=== PATIENT | male | born 1975 | race Caucasian/White ===

== ENCOUNTER → 2017-05-21 16:30 | Outpatient (REF) | payer OTHER, SELFPAY ==
[2017-05-21 19:00] LABS: Basophils # 0.2 K/mm3 (0-0.2); Basophils % 1.6 % (0.1-2.0); Eosinophils # 0.4 K/mm3 (0.0-0.4); Eosinophils % 3.8 % (0.1-12.0); Hematocrit 51.6 % (42.0-52.0); Lymphocytes # 3.1 K/mm3 (0.7-4.5); Lymphocytes % 30.9 K/mm3 (10-50); Mean Corpuscular Hemoglobin 29.4 pg (27.0-31.2); Mean Corpuscular Volume 89.2 fl (80-94); Mean Platelet Volume 8.3 fl (7.4-10.4); Monocytes # 0.8 K/mm3 (0.1-1.0); Neutrophils # 5.5 K/mm3 (1.8-7.8); Neutrophils % 55.7 % (37.0-80.0); Platelet Count 291 K/mm3 (142-424); Red Blood Count 5.78 M/mm3 (4.60-6.20); Red Cell Distribution Width 14.4 % (11.5-17.5); White Blood Count 9.9 K/mm3 (4.8-10.8)
[2017-05-21 19:46] LABS: Alanine Aminotransferase 29 U/L (12-78); Albumin Level 4.2 gm/dL (3.4-5.0); Albumin/Globulin Ratio 1.2 (1.1-1.8); Alkaline Phosphatase 104 U/L (46-116); Anion Gap 13.7 mEq/L (5-15); Aspartate Amino Transferase 17 U/L (15-37); Bilirubin,Total 0.3 mg/dL (0.2-1.0); Blood Urea Nitrogen 11 mg/dL (7-18); Calcium 9.3 mg/dL (8.5-10.1); Carbon Dioxide 27 mmol/L (21.0-32.0); Chloride 99 mmol/L (98-107); Creatinine,Serum 1.08 mg/dL (0.70-1.30); Estimated Glomerular Filt Rate 75 ml/min (>60); GFR (African American) 91 ML/MIN (>60); Globulin 3.6 gm/dl (1.3-3.2); Glucose 82 mg/dL (74-106); Potassium 4.7 mmoL/L (3.5-5.1); Sodium 135 mmol/L (136-145); Total Protein,Serum 7.8 gm/dL (6.4-8.2)
[2017-05-21 21:59] LABS: Hemoglobin A1C 5.3 % (0.0-7.0)
== END ==
LOC: LAB 16:30
PROVIDERS: Visit Provider Emergency Medicine
DX: R53.83 Other fatigue (principal)
CPT/HCPCS: 80053; 83036; 85025

== ENCOUNTER → 2017-07-02 11:51 | Outpatient (CLI) | payer OTHER, SELFPAY ==
--- NOTE | 2017-07-02 11:56 | NM_ITS ---
NM andrés perf SPECT rest str CLINICAL INDICATION: Chest pain and shortness of breath, hypertension hypercholesterolemia tobacco use positive family history ORDERING PHYSICIAN: Fabricio Neville MD PATIENT AGE: 42 years COMPARISON: 01/02/2017 DOSE: 11.20 mCi technetium Myoviewintravenously at rest followed by 31.1 mCi technetium Myoview following the intravenous administration of 0.4 mg of Lexiscan. Resting blood pressure is 140/84. Stress blood pressure 139/77. FINDINGS: Ejection fraction is calculated to be 62%. No obvious wall motion abnormalities. SPECT and polar map images reviewed. No fixed or reversible defects are evident that would indicate infarction or ischemia. Decrease activity is present in the inferior wall on the stress images probably related to diaphragmatic attenuation. IMPRESSION: 1. Normal ejection fraction. 2. No evidence of ischemia or infarction
--- NOTE | 2017-07-02 14:43 | HMH.ITSHM ---
lisinopril escitalopram gabapentin tramadol omeprazole
== END ==
PROVIDERS: Family Provider Emergency Medicine; PCP Emergency Medicine; Visit Provider Emergency Medicine
DX: R07.9 Chest pain, unspecified (principal)
CPT/HCPCS: 78452; 93017; A9502; J2785

== ENCOUNTER → 2017-07-24 08:47 | Outpatient (CLI) | payer OTHER, SELFPAY ==
--- NOTE | 2017-07-24 08:51 | US_ITS ---
US abdomen limited: HISTORY: ITS.REASON: RUQ pain ORDERING PHYSICIAN: Fabricio Neville MD PATIENT AGE: 42 years COMPARISON: None FINDINGS: PANCREAS: Unremarkable. No obvious mass or abnormal fluid collection. No ductal dilatation LIVER: No focal liver lesions demonstrated. Homogeneous echogenicity. No intrahepatic biliary ductal dilatation evident. Slight increased echogenicity of the liver suggesting fatty liver. Normal sized portal vein with appropriate direction blood flow RIGHT KIDNEY: Unremarkable. Normal size and echogenicity. No hydronephrosis GALLBLADDER: No gallstones, gallbladder wall thickening, pericholecystic fluid, or biliary dilatation. Gallbladder is slightly distended with a minimal amount sludge. IMPRESSION: Mildly distended gallbladder with small amount sludge. Fatty liver
== END ==
PROVIDERS: Family Provider Emergency Medicine; PCP Emergency Medicine; Visit Provider Emergency Medicine
DX: R10.11 Right upper quadrant pain (principal)
CPT/HCPCS: 76705

== ENCOUNTER → 2017-09-10 13:54 | Outpatient (REF) | payer OTHER, SELFPAY ==
[2017-09-10 19:27] LABS: Amphetamine/Metha Screen,Urine Negative ng/mL (<1000); Barbiturates Screen,Urine Negative ng/mL (<200); Benzodiazepines Screen,Urine Negative ng/mL (200); Cannabinoid Screen,Urine Positive ng/mL (<50); Cocaine Screen,Urine Negative ng/g (<300); Methadone Screen,Urine Negative ng/mL (<300); Opiate Screen,Urine Positive ng/mL (<300); Phencyclidine Screen,Urine Negative ng/mL (<25)
== END ==
LOC: LAB 13:54
PROVIDERS: Visit Provider Emergency Medicine
DX: Z79.899 Other long term (current) drug therapy (principal)
CPT/HCPCS: 80305

== ENCOUNTER → 2017-09-26 10:16 | Outpatient (CLI) | payer OTHER, SELFPAY ==
--- NOTE | 2017-09-26 10:17 | NM_ITS ---
HEPATOBILIARY SCAN WITH FATTY MEAL/ENSURE ORDERING PHYSICIAN : Fabricio Nevlile MD PATIENT AGE: 42 years GENDER: Male HISTORY: Right upper quadrant pain .. Nausea Following 8.4 millicuries Tc Choletec, images of the RUQ were obtained. There is prompt uptake of radionuclide by the liver which is grossly unremarkable. Small bowel is visualized. This initial portion of the study is normal. The gallbladder was allowed to fill out to 60 minutes. Fatty meal/1 can of ensure was administered, with imaging performed over 60 minutes minutes Thereafter. The obtain data was analyzed and reveals a 46 % gallbladder ejection fraction (normal greater than 50%; borderline 35-50%).. Borderline adequate value following fatty meal. Visual inspection to suggest there is near 50% ejection fraction as well. patient experienced no pain with fatty meal IMPRESSION: Borderline adequate ejection fraction of 46 % following fatty meal. No pain with fatty meal.
== END ==
PROVIDERS: Family Provider Emergency Medicine; PCP Emergency Medicine; Visit Provider Emergency Medicine
DX: K82.8 Other specified diseases of gallbladder (principal); R10.9 Unspecified abdominal pain
CPT/HCPCS: 78226; A9537

== ENCOUNTER → 2017-10-10 15:02 | Outpatient (CLI) | payer OTHER, SELFPAY ==
[2017-10-10 19:25] LABS: Amphetamine/Metha Screen,Urine Negative ng/mL (<1000); Barbiturates Screen,Urine Negative ng/mL (<200); Benzodiazepines Screen,Urine Negative ng/mL (200); Cannabinoid Screen,Urine Positive ng/mL (<50); Cocaine Screen,Urine Negative ng/g (<300); Methadone Screen,Urine Negative ng/mL (<300); Opiate Screen,Urine Positive ng/mL (<300); Phencyclidine Screen,Urine Negative ng/mL (<25)
== END ==
PROVIDERS: Visit Provider Emergency Medicine
DX: Z79.899 Other long term (current) drug therapy (principal)
CPT/HCPCS: 80305

== ENCOUNTER → 2017-10-23 10:51 | Outpatient (CLI) | payer OTHER, SELFPAY ==
--- NOTE | 2017-10-23 10:52 | FL_ITS ---
FL upper GI w air Ordering Physician: Pal Levi MD Patient Age: 42 years: Male HISTORY: ITS.REASON: ABDOMINAL PAIN, NAUSEA Left lower quadrant pain or reported to me. HISTORY states left-sided pain under ribs. Recent gallbladder studies were negative TECHNIQUE: Air-contrast UGI performed by Dr. Pineda. Fluoroscopy time 1 minute 47 seconds COMPARISON : FINDINGS Esophagus appears satisfactory and unremarkable under fluoroscopy observation. The stomach pylorus and duodenal bulb appear normal. Normal rugal fold pattern of stomach. Prompt gastric emptying. No ulceration or filling defect. Duodenal bulb appears normal. A 15 minute delayed image shows the oral contrast passing through the small bowel into the right colon. This reflects fairly rapid transit. Moderate thickness mucosal folds at small bowel IMPRESSION: Negative air-contrast UGI. Esophagus, stomach, pylorus and duodenal appears satisfactory.
== END ==
PROVIDERS: Family Provider Emergency Medicine; PCP Emergency Medicine; Visit Provider Surgery
DX: R10.9 Unspecified abdominal pain (principal)
CPT/HCPCS: 74247

== ENCOUNTER → 2017-10-27 09:03 | Outpatient (CLI) | payer OTHER, SELFPAY | PROVIDERS: Family Provider Emergency Medicine; PCP Emergency Medicine; Visit Provider Surgery | DX: R10.9 Unspecified abdominal pain (principal) ==

== ENCOUNTER → 2017-10-31 13:03 | Outpatient (CLI) | payer OTHER, SELFPAY ==
--- NOTE | 2017-10-31 13:07 | CT_ITS ---
CT abdomen pelvis w con CLINICAL INDICATION: Abdominal pain with nausea and vomiting ITS.REASON: gallbladder problems ORDERING PHYSICIAN: Pal Levi MD PATIENT AGE: 42 years COMPARISON: 03/06/2009 TECHNIQUE: Axial images obtained with sagittal and coronal reformats. All CT scans at the facility use one or more dose reduction, viz: automated exposure control; ma/kV adjustment per patient size (including targeted exams where dose is matched to indication; i.e. head); or iterative reconstruction technique. PROCEDURE: Oral Contrast: Redicat IV Contrast: 75 mL's of Isovue 370. FINDINGS: Lung bases are clear. The liver, gallbladder, spleen, and pancreas have an unremarkable appearance. There is minimal nodularity of the left adrenal gland but maintains an adreniform shape nonspecific. No renal calculi or ureteral calculi. No hydronephrosis or renal mass. Prior appendectomy. No intestinal obstruction or free air. No evidence of diverticulitis No pelvic mass abnormal fluid collection clinical pelvic inflammatory change. No acute bony anomalies. There is partial fusion of the right SI joint superiorly. IMPRESSION: No acute abdominal or pelvic findings. No intestinal obstruction, abdominal mass or focal inflammatory change.
--- NOTE | 2017-10-31 13:47 | HMH.ITSHM ---
LISINOPRIL ESCITALOPRAM PANTOPRAZOLE
== END ==
PROVIDERS: Family Provider Emergency Medicine; PCP Emergency Medicine; Visit Provider Surgery
DX: K82.9 Disease of gallbladder, unspecified (principal); R11.0 Nausea
CPT/HCPCS: 74177; Q9967

== ENCOUNTER → 2017-11-10 15:26 | Outpatient (REF) | payer OTHER, SELFPAY ==
[2017-11-10 18:53] LABS: Amphetamine/Metha Screen,Urine Negative ng/mL (<1000); Barbiturates Screen,Urine Negative ng/mL (<200); Benzodiazepines Screen,Urine Negative ng/mL (<200); Cannabinoid Screen,Urine Positive ng/mL (<50); Cocaine Screen,Urine Negative ng/mL (<300); Methadone Screen,Urine Negative ng/mL (<300); Opiate Screen,Urine Positive ng/mL (<300); Phencyclidine Screen,Urine Negative ng/mL (<25)
== END ==
LOC: LAB 15:26
PROVIDERS: Visit Provider Emergency Medicine
DX: Z79.899 Other long term (current) drug therapy (principal)
CPT/HCPCS: 80305

== ENCOUNTER → 2017-12-10 14:50 | Outpatient (REF) | payer OTHER, SELFPAY ==
[2017-12-10 18:24] LABS: Amphetamine/Metha Screen,Urine Negative ng/mL (<1000); Barbiturates Screen,Urine Negative ng/mL (<200); Benzodiazepines Screen,Urine Negative ng/mL (<200); Cannabinoid Screen,Urine Positive ng/mL (<50); Cocaine Screen,Urine Negative ng/mL (<300); Methadone Screen,Urine Negative ng/mL (<300); Opiate Screen,Urine Positive ng/mL (<300); Phencyclidine Screen,Urine Negative ng/mL (<25)
== END ==
LOC: LAB 14:50
PROVIDERS: Visit Provider Emergency Medicine
DX: Z79.899 Other long term (current) drug therapy (principal)
CPT/HCPCS: 80305

== ENCOUNTER → 2018-01-09 16:12 | Outpatient (REF) | payer OTHER, SELFPAY ==
[2018-01-09 17:40] LABS: Basophils # 0.1 K/mm3 (0-0.2); Basophils % 1.2 % (0.1-2.0); Eosinophils # 0.4 K/mm3 (0.0-0.4); Eosinophils % 4.5 % (0.1-12.0); Hematocrit 49.2 % (42.0-52.0); Hemoglobin 16.5 g/dL (14.1-18.0); Lymphocytes # 3.4 K/mm3 (0.7-4.5); Lymphocytes % 36.5 K/mm3 (10-50); Mean Corpuscular HGB Conc 33.4 g/dL (31.8-35.4); Mean Corpuscular Hemoglobin 32.4 pg (27.0-31.2); Mean Corpuscular Volume 96.9 fl (80-94); Mean Platelet Volume 7.7 fl (7.4-10.4); Monocytes # 0.8 K/mm3 (0.1-1.0); Monocytes % 8.1 % (1.7-9.3); Neutrophils # 4.7 K/mm3 (1.8-7.8); Neutrophils % 49.6 % (37.0-80.0); Platelet Count 273 K/mm3 (142-424); Red Blood Count 5.08 M/mm3 (4.60-6.20); Red Cell Distribution Width 14.6 % (11.5-17.5); White Blood Count 9.4 K/mm3 (4.8-10.8)
[2018-01-09 18:17] LABS: Alanine Aminotransferase 18 U/L (12-78); Albumin Level 4.3 gm/dL (3.4-5.0); Albumin/Globulin Ratio 1.1 (1.1-1.8); Alkaline Phosphatase 104 U/L (46-116); Anion Gap 11.5 mEq/L (5-15); Aspartate Amino Transferase 10 U/L (15-37); Bilirubin,Total 0.5 mg/dL (0.2-1.0); Blood Urea Nitrogen 9 mg/dL (7-18); C-Reactive Protein 0.2 mg/L (0.0-0.9); Calcium 9.3 mg/dL (8.5-10.1); Carbon Dioxide 28 mmol/L (21.0-32.0); Chloride 102 mmol/L (98-107); Chol/HDL Ratio 4.7 (1-3.5); Cholesterol 187 mg/dL (140-200); Creatinine,Serum 1.01 mg/dL (0.70-1.30); Estimated Glomerular Filt Rate 81 ml/min (>60); GFR (African American) 98 ML/MIN (>60); Globulin 3.8 gm/dl (1.3-3.2); Glucose 72 mg/dL (74-106); HDL Cholesterol 40 mg/dL (27-67); LDL Cholesterol 97 mg/dL (0-130); Potassium 4.5 mmoL/L (3.5-5.1); Sodium 137 mmol/L (136-145); Total Protein,Serum 8.1 gm/dL (6.4-8.2); Triglycerides 249 mg/dL (30-200); VLDL Cholesterol 50 mg/dL (0-40)
[2018-01-09 18:30] LABS: Erythrocyte Sedimentation Rate 8 mm/hr (0-15)
== END ==
LOC: LAB 16:12
PROVIDERS: Visit Provider Emergency Medicine
DX: R53.83 Other fatigue (principal); M54.9 Dorsalgia, unspecified
CPT/HCPCS: 80053; 80061; 85025; 85651; 86140

== ENCOUNTER → 2018-01-20 13:49 | Outpatient (REF) | payer OTHER, SELFPAY ==
[2018-01-20 19:10] LABS: Amphetamine/Metha Screen,Urine Negative ng/mL (<1000); Barbiturates Screen,Urine Negative ng/mL (<200); Benzodiazepines Screen,Urine Negative ng/mL (<200); Cannabinoid Screen,Urine Positive ng/mL (<50); Cocaine Screen,Urine Negative ng/mL (<300); Methadone Screen,Urine Negative ng/mL (<300); Opiate Screen,Urine Positive ng/mL (<300); Phencyclidine Screen,Urine Negative ng/mL (<25)
== END ==
LOC: LAB 13:49
PROVIDERS: PCP Emergency Medicine; Visit Provider Emergency Medicine
DX: Z79.899 Other long term (current) drug therapy (principal)
CPT/HCPCS: 80305

== ENCOUNTER → 2018-12-02 13:17 | Outpatient (CLI) | payer OTHER, SELFPAY ==
[2018-12-02 13:37] LABS: Basophils # 0.1 K/mm3 (0-0.2); Basophils % 1.1 % (0.1-2.0); Eosinophils # 0.4 K/mm3 (0.0-0.4); Eosinophils % 4.9 % (0.1-12.0); Hematocrit 51.3 % (42.0-52.0); Hemoglobin 17.1 g/dL (14.1-18.0); Lymphocytes # 2.7 K/mm3 (0.7-4.5); Lymphocytes % 31.7 % (10-50); Mean Corpuscular HGB Conc 33.4 g/dL (31.8-35.4); Mean Corpuscular Hemoglobin 31.7 pg (27.0-31.2); Mean Corpuscular Volume 94.9 fl (80-94); Mean Platelet Volume 7.6 fl (7.4-10.4); Monocytes # 0.6 K/mm3 (0.1-1.0); Monocytes % 6.9 % (1.7-9.3); Neutrophils # 4.8 K/mm3 (1.8-7.8); Neutrophils % 55.5 % (37.0-80.0); Platelet Count 286 K/mm3 (142-424); Red Blood Count 5.41 M/mm3 (4.60-6.20); Red Cell Distribution Width 14.3 % (11.5-17.5); White Blood Count 8.6 K/mm3 (4.8-10.8)
[2018-12-02 13:44] LABS: Alanine Aminotransferase 20 U/L (12-78); Albumin Level 4.2 gm/dL (3.4-5.0); Albumin/Globulin Ratio 1.1 (1.1-1.8); Alkaline Phosphatase 84 U/L (46-116); Anion Gap 12.5 mEq/L (5-15); Aspartate Amino Transferase 6 U/L (15-37); Bilirubin,Total 0.4 mg/dL (0.2-1.0); Blood Urea Nitrogen 13 mg/dL (7-18); Calcium 9.5 mg/dL (8.5-10.1); Carbon Dioxide 27 mmol/L (21.0-32.0); Chloride 103 mmol/L (98-107); Chol/HDL Ratio 4.4 (1-3.5); Cholesterol 185 mg/dL (140-200); Creatinine,Serum 0.95 mg/dL (0.70-1.30); Estimated Glomerular Filt Rate 87 ml/min (>60); Free T4 (Free Thyroxine) 0.83 ng/dl (0.76-1.46); GFR (African American) 105 ML/MIN (>60); Globulin 3.9 gm/dl (1.3-3.2); Glucose 82 mg/dL (74-106); HDL Cholesterol 42 mg/dL (27-67); LDL Cholesterol 112 mg/dL (0-130); Potassium 4.5 mmoL/L (3.5-5.1); Sodium 138 mmol/L (136-145); Thyroid Stimulating Hormone 1.26 uIU/ml (0.358-3.740); Total Protein,Serum 8.1 gm/dL (6.4-8.2); Triglycerides 154 mg/dL (30-200); VLDL Cholesterol 31 mg/dL (0-40)
[2018-12-03 13:20] LABS: Vitamin D 25 Hydroxy 24.9 ng/mL (30.0-100.0)
== END ==
PROVIDERS: Visit Provider Emergency Medicine
DX: R53.83 Other fatigue (principal)
CPT/HCPCS: 80053; 80061; 82652; 84439; 84443; 85025

== ENCOUNTER → 2019-01-12 13:52 | Outpatient (CLI) | payer OTHER, SELFPAY ==
[2019-01-12 15:18] LABS: Amphetamine/Metha Screen,Urine Negative ng/mL (<1000); Barbiturates Screen,Urine Negative ng/mL (<200); Benzodiazepines Screen,Urine Negative ng/mL (<200); Cannabinoid Screen,Urine Positive ng/mL (<50); Cocaine Screen,Urine Negative ng/mL (<300); Methadone Screen,Urine Negative ng/mL (<300); Opiate Screen,Urine Negative ng/mL (<300); Phencyclidine Screen,Urine Negative ng/mL (<25)
[2019-01-20 10:14] LABS: Alprazolam Negative (Cutoff=100); Benzodiazepines Positive ng/mL (Cutoff=100); Clonazepam Positive (.); Flurazepam Negative (Cutoff=100); Lorazepam Negative (Cutoff=100); Midazolam Negative (Cutoff=100); Temazepam Negative (Cutoff=100); Triazolam Negative (Cutoff=100)
[2019-01-21 06:10] LABS: Clonazepam Confirm 103 ng/mL (Cutoff=100)
== END ==
PROVIDERS: Visit Provider Emergency Medicine
DX: F41.9 Anxiety disorder, unspecified (principal); Z79.899 Other long term (current) drug therapy
CPT/HCPCS: 80305; 80346

== ENCOUNTER → 2019-05-28 13:42 | Outpatient (CLI) | payer MEDICAID, SELFPAY ==
[2019-05-28 15:44] LABS: Amphetamine/Metha Screen,Urine Negative ng/mL (<1000); Barbiturates Screen,Urine Negative ng/mL (<200); Benzodiazepines Screen,Urine Negative ng/mL (<200); Cannabinoid Screen,Urine Positive ng/mL (<50); Cocaine Screen,Urine Negative ng/mL (<300); Methadone Screen,Urine Negative ng/mL (<300); Opiate Screen,Urine Negative ng/mL (<300); Phencyclidine Screen,Urine Negative ng/mL (<25)
[2019-06-04 04:23] LABS: Alprazolam Negative (Cutoff=100); Benzodiazepines Negative ng/mL (Cutoff=100); Clonazepam Negative (Cutoff=100); Flurazepam Negative (Cutoff=100); Lorazepam Negative (Cutoff=100); Midazolam Negative (Cutoff=100); Temazepam Negative (Cutoff=100); Triazolam Negative (Cutoff=100)
== END ==
PROVIDERS: Visit Provider Emergency Medicine
DX: Z79.899 Other long term (current) drug therapy (principal)
CPT/HCPCS: 80305; 80346

== ENCOUNTER → 2019-10-05 11:24 | Outpatient (CLI) | payer MEDICAID, SELFPAY ==
[2019-10-05 12:14] LABS: Basophils # 0.1 K/mm3 (0-0.2); Basophils % 1.4 % (0.1-2.0); Eosinophils # 0.8 K/mm3 (0.0-0.4); Eosinophils % 9.4 % (0.1-12.0); Hematocrit 44.8 % (42.0-52.0); Lymphocytes # 2.9 K/mm3 (0.7-4.5); Lymphocytes % 32.7 % (10-50); Mean Corpuscular HGB Conc 33.5 g/dL (31.8-35.4); Mean Corpuscular Hemoglobin 32.5 pg (27.0-31.2); Mean Platelet Volume 7.6 fl (7.4-10.4); Monocytes # 0.7 K/mm3 (0.1-1.0); Monocytes % 7.4 % (1.7-9.3); Neutrophils # 4.4 K/mm3 (1.8-7.8); Neutrophils % 49.1 % (37.0-80.0); Platelet Count 208 K/mm3 (142-424); Red Blood Count 4.62 M/mm3 (4.60-6.20); Red Cell Distribution Width 14.3 % (11.5-17.5); White Blood Count 8.9 K/mm3 (4.8-10.8)
[2019-10-05 13:47] LABS: Alanine Aminotransferase 12 U/L (12-78); Albumin Level 4.9 g/dl (3.5-5.0); Albumin/Globulin Ratio 1.8 (1.1-1.8); Alkaline Phosphatase 60 U/L (38-126); Anion Gap 10.5 mEq/L (5-15); Aspartate Amino Transferase 21 U/L (17-59); Bilirubin,Total 0.5 mg/dl (0.2-1.3); Blood Urea Nitrogen 13 mg/dl (9-20); Calcium 9.8 mg/dl (8.4-10.2); Carbon Dioxide 29 mmol/L (22.0-30.0); Chloride 102 mmol/L (98-107); Estimated Glomerular Filt Rate 73 ml/min (>60); GFR (African American) 88 ML/MIN (>60); Globulin 2.8 g/dL (1.3-3.2); Glucose 69 mg/dl (74-100); Potassium 4.5 mmoL/L (3.5-5.1); Sodium 137 mmol/L (136-145); Total Protein,Serum 7.7 g/dl (6.3-8.2)
[2019-10-05 14:19] LABS: Thyroid Stimulating Hormone 1.65 uIU/mL (0.465-4.68)
[2019-10-05 14:26] LABS: Hemoglobin A1C 5.1 % (4.0-6.0)
[2019-10-06 14:16] LABS: Vitamin B12 246 pg/mL (232-1245); Vitamin D 25 Hydroxy 20.9 ng/mL (30.0-100.0)
== END ==
PROVIDERS: Visit Provider Nurse Practitioner Psychiatric/Mental Health
DX: Z00.00 Encounter for general adult medical examination without abnormal findings (principal); Z79.899 Other long term (current) drug therapy; F20.1 Disorganized schizophrenia; F41.1 Generalized anxiety disorder; G47.00 Insomnia, unspecified; E55.9 Vitamin D deficiency, unspecified
CPT/HCPCS: 36415; 80053; 82607; 82652; 83036; 84443; 85025

== ENCOUNTER → 2019-11-09 14:01 | Outpatient (CLI) | payer MEDICAID, SELFPAY ==
--- NOTE | 2019-11-09 14:04 | XR_ITS ---
PROCEDURE: XR FOOT WT BEARING RT 3V CLINICAL INDICATION: pain Foot pain COMPARISON: No exams were available for comparison FINDINGS: No fracture or dislocation. No lytic or blastic change. There is normal mineralization. The joint spaces are well-preserved. No significant degenerative/arthritic changes. No erosive changes evident. Other findings:None. IMPRESSION: No acute findings. Dictated by: Robbi Terry MD 11/09/2019 15:28 Electronically signed by Robbi Terry MD in [facility] 11/09/2019 15:28
--- NOTE | 2019-11-09 14:04 | XR_ITS ---
PROCEDURE: XR FOOT WT BEARING LT 3V CLINICAL INDICATION: pain COMPARISON: No exams were available for comparison FINDINGS: No fracture or dislocation. No lytic or blastic change. There is normal mineralization. The joint spaces are well-preserved. No significant degenerative/arthritic changes. No erosive changes evident. Other findings:None. IMPRESSION: No acute findings. Dictated by: Robbi Terry MD 11/09/2019 15:04 Electronically signed by Robbi Terry MD in [facility] 11/09/2019 15:04
== END ==
PROVIDERS: PCP Emergency Medicine; Visit Provider Podiatrist
DX: M79.672 Pain in left foot (principal); M79.671 Pain in right foot
CPT/HCPCS: 73630

== ENCOUNTER 2020-06-23 11:00 | Emergency (ER) | payer MEDICAID, SELFPAY ==
[2020-06-23] VITALS (9 sets, daily range): BP systolic 128–178; BP diastolic 82–103; PULSE 91–98; RESP 13–22; TEMP 36.7; O2SAT 99–100; BMI 33.6
--- NOTE | 2020-06-23 10:50 | ECG_ITS ---
APPROVED REPORT Exam: Resting ECG HR:98 bpm ECG Measurements Heart Rate 98 AXES FL 156 P 69 QRSd 90 QRS 90 QT 352 T 77 QTc 449 Conclusion Normal sinus rhythm Rightward axis Borderline ECG Electronically signed by : Paul Babcock, 06/23/2020 20:10:16
--- NOTE | 2020-06-23 11:07 | XR_ITS ---
PROCEDURE: XR CHEST 2V CLINICAL HISTORY: chest pain Smoking history COMPARISON: CR CXR CHEST(2 VIEWS-NOT PORTABLE) from 08/12/2013 CR CXR CHEST(2 VIEWS-NOT PORTABLE) from 01/01/2017 FINDINGS: The cardiomediastinal silhouette and pulmonary vascularity are within normal limits. The lungs are clear without infiltrates, suspicious nodules, or pleural effusions. There is a calcified right hilar node No acute bony abnormalities. IMPRESSION: No acute findings. Dictated by: Dr. Ralph Underwood MD 06/23/2020 12:16 Dr. Ralph Underwood MD in [facility] 06/23/2020 12:16
--- NOTE | 2020-06-23 11:14 | HMH.EDGENADL ---
ED Disposition Clinical Impression: Atypical chest pain, Left sided abdominal pain, Weight gain, Anxiety Disposition: Home, Self-Care Condition on Discharge: Good Instructions: DI for Atypical Chest Pain, DI for Abdominal Pain-Adult Additional Instructions: Go to see Dr. Neville now. Additional instructions for CHEST PAIN: See your physician as soon as possible for further evaluation. Return immediately if worsening chest pain, vomiting, shortness of breath, fever, coughing of blood. Additional instructions for ABDOMINAL PAIN: See your physician as soon as possible for further evaluation. Return immediately if worsening abdominal pain, vomiting, shortness of breath, fever, vomiting of blood or abdominal distention. Referrals: Fabricio Neville MD [Primary Care Provider] - - Critical Care Critical Care Time: No Attestation: On 06/23/20, the high probability of a clinically significant, sudden or life threatening deterioration of the following system(s) required my full and direct attention, intervention and personal management. The time I documented below is in addition to time spent performing reported procedures but includes the following listed in this critical care notation. Medical Decision Making - Aneudy Inquiry Pt receiving controlled substance: No Vital Signs: 06/23/20 11:00 06/23/20 11:30 06/23/20 12:00 Temperature 98.0 F Temperature Source Oral Pulse Rate [Left Radial] 98 H 93 H 92 H Respiratory Rate 20 22 22 Blood Pressure [Right Arm] 161/100 H 166/98 H 144/91 H Blood Pressure Mean [Right Arm] 120 120 108 Blood Pressure Source [Right Arm] Automatic Cuff Automatic Cuff Automatic Cuff Blood Pressure Position [Right Arm] Sitting Sitting Sitting 02 Sat by Pulse Oximetry 99 99 99 Oxygen Delivery Method Room Air Room Air Room Air 06/23/20 12:30 06/23/20 13:00 06/23/20 13:30 Temperature Temperature Source Pulse Rate [Left Radial] 95 H 96 H 93 H Respiratory Rate 21 18 18 Blood Pressure [Right Arm] 153/90 H 145/93 H 152/82 H Blood Pressure Mean [Right Arm] 111 110 105 Blood Pressure Source [Right Arm] Automatic Cuff Automatic Cuff Automatic Cuff Blood Pressure Position [Right Arm] Sitting Sitting Sitting 02 Sat by Pulse Oximetry 99 100 100 Oxygen Delivery Method Room Air Room Air Room Air 06/23/20 14:00 Temperature Temperature Source Pulse Rate [Left Radial] 91 H Respiratory Rate 13 Blood Pressure [Right Arm] 178/98 H Blood Pressure Mean [Right Arm] 124 Blood Pressure Source [Right Arm] Automatic Cuff Blood Pressure Position [Right Arm] Sitting 02 Sat by Pulse Oximetry 100 Oxygen Delivery Method Room Air - Lab Data Lab Results 06/23/20 11:00: WBC 9.0, RBC 4.85, Hgb 15.3, Hct 46.6, MCV 96.1 H, MCH 31.6 H, MCHC 32.9, RDW 15.5, Plt Count 248, MPV 7.1 L, Neut % (Auto) 56.6, Lymph % (Auto) 30.6, [place] % (Auto) 7.6, Eos % (Auto) 3.9, Baso % (Auto) 1.4, Neut # (Auto) 5.1, Lymph # (Auto) 2.7, [place] # (Auto) 0.7, Eos # (Auto) 0.4, Baso # (Auto) 0.1 06/23/20 11:00: Sodium 139, Potassium 4.2, Chloride 103, Carbon Dioxide 28, Anion Gap 12.2, BUN 13, Creatinine 1.20, Estimated Creat Clear 107, Estimated GFR 65, Est GFR ( Amer) 79, Glucose 96, Calcium 9.9, Troponin I < 0.01 06/23/20 11:00: Total Bilirubin 0.6, Direct Bilirubin 0.2, Conjugated Bilirubin 0.0, Indirect Bilirubin 0.4, Unconjugated Bilirubin 0.4, AST 23, ALT 19, Alkaline Phosphatase 57, Total Protein 8.3 H, Albumin 4.7, Lipase 30 06/23/20 13:55: Troponin I < 0.01 06/23/20 13:58: Urine Opiates Screen Negative, Urine Methadone Screen Negative, Ur Barbituates Screen Negative, Ur Phencyclidine Scrn Negative, Ur Amphetamines Screen Negative, U Benzodiazepines Scrn Negative, Urine Cocaine Screen Negative, U Marijuana (THC) Screen Positive H Result diagrams: 06/23/20 11:00 06/23/20 11:00 Orders (Tests/Meds): ED MEDICATIONS Discontinued Medications Generic Name Dose Route Start Last Admin Trade Name Franklyn PRN
--- NOTE | 2020-06-23 11:17 | PC.NURSE ---
Pt taken to restroom at this time. Urine specimen requested.
[2020-06-23 11:18] LABS: Basophils # 0.1 K/mm3 (0-0.2); Basophils % 1.4 % (0.1-2.0); Eosinophils # 0.4 K/mm3 (0.0-0.4); Eosinophils % 3.9 % (0.1-12.0); Hematocrit 46.6 % (42.0-52.0); Hemoglobin 15.3 g/dL (14.1-18.0); Lymphocytes # 2.7 K/mm3 (0.7-4.5); Lymphocytes % 30.6 % (10-50); Mean Corpuscular HGB Conc 32.9 g/dL (31.8-35.4); Mean Corpuscular Hemoglobin 31.6 pg (27.0-31.2); Mean Corpuscular Volume 96.1 fl (80-94); Mean Platelet Volume 7.1 fl (7.4-10.4); Monocytes # 0.7 K/mm3 (0.1-1.0); Monocytes % 7.6 % (1.7-9.3); Neutrophils # 5.1 K/mm3 (1.8-7.8); Neutrophils % 56.6 % (37.0-80.0); Platelet Count 248 K/mm3 (142-424); Red Blood Count 4.85 M/mm3 (4.60-6.20); Red Cell Distribution Width 15.5 % (11.5-17.5)
[2020-06-23 11:19] LABS: Chloride 103 mmol/L (98-107); Potassium 4.2 mmoL/L (3.5-5.1); Sodium 139 mmol/L (136-145)
--- NOTE | 2020-06-23 11:19 | PC.NURSE ---
pt back to room.
[2020-06-23 11:22] LABS: Blood Urea Nitrogen 13 mg/dl (9-20); Creatinine Clearance Estimated 107 mL/min (50-200); Estimated Glomerular Filt Rate 65 ml/min (>60); GFR (African American) 79 ML/MIN (>60)
[2020-06-23 11:23] LABS: Anion Gap 12.2 mEq/L (5-15); Calcium 9.9 mg/dl (8.4-10.2); Carbon Dioxide 28 mmol/L (22.0-30.0); Glucose 96 mg/dl (74-100)
--- NOTE | 2020-06-23 11:27 | CT_ITS ---
PROCEDURE: CT ABDOMEN PELVIS W CON CLINICAL INDICATION: abdominal pain and swelling COMPARISON: CT ABDPELW CT abdomen pelvis w con from 10/31/[address] ANGIO CHEST from 06/23/2020 TECHNIQUE: IV Contrast: 75ML Isovue 370 Oral Contrast None Axial images obtained with sagittal and coronal reformats. All CT scans at the facility use one or more dose reduction, viz: automated exposure control, ma/kV adjustment per patient size (including targeted exams where dose is matched to indication, i.e. head), or iterative reconstruction technique. FINDINGS: LOWER THORAX: Refer to chest CT dictation. ABDOMEN & PELVIS: There is no intraperitoneal free air or free fluid. Incidentally noted is focal fatty sparing adjacent to the gallbladder fossa and peripheral margin of the liver. The solid abdominal organs have an otherwise normal appearance. There is a mildly distended, otherwise normal appearing urinary bladder. Pelvic organs have a normal appearance. The GI tract is incompletely evaluated in the absence of intraluminal contrast. There is no ileus or obstruction. There is mucosal enhancement in the distal esophagus suggesting esophagitis. There are no pathologically enlarged abdominal or pelvic lymph nodes by CT size criteria. There are scattered periaortic lymph nodes and tiny retrocrural lymph nodes nonenlarged but greater than typical. A 1 year follow-up abdomen CT would be reassuring. There is minimal scattered atherosclerotic calcification in the vasculature. The major abdominal and pelvic vasculature is otherwise unremarkable. IMPRESSION: 1. Suspected esophagitis. Correlate clinically. Malignancy can have a similar appearance. 2. Scattered nonenlarged lymph nodes. One year follow-up abdomen CT would be reassuring. Dictated by: Marisel Cazares MD 06/23/2020 13:10 Marisel Cazares MD in [facility] 06/23/2020 13:10
--- NOTE | 2020-06-23 11:28 | CT_ITS ---
PROCEDURE: CT ANGIO CHEST CLINCIAL INDICATION: pleuritic chest pain COMPARISON: CR CXR CHEST(2 VIEWS-NOT PORTABLE) from 08/12/2013 CR CXR CHEST(2 VIEWS-NOT PORTABLE) from 01/01/2017 TECHNIQUE: IV Contrast: 70ML Isovue 370 Axial images obtained with sagittal and coronal reformats. All CT scans at the facility use one or more dose reduction, viz: automated exposure control, ma/kV adjustment per patient size (including targeted exams where dose is matched to indication, i.e. head), or iterative reconstruction technique. FINDINGS: There is no infiltrate. There are two 3 millimeter right lung nodules, images 30 and 39. A 1 year follow-up chest CT could be performed. There is excellent opacification of the pulmonary arteries. There is no pulmonary embolus. The thoracic aorta is normal in size and appearance. There is diffuse thickening of the esophagus. This most frequently represents esophagitis, however malignancy has a similar appearance. Thyroid gland is normal. There is a 1.3 by 0.9 centimeter right paratracheal lymph node there is a 1.5 by 0.8 centimeter lymph node adjacent to the mid esophagus. These lymph nodes are upper limits of normal in size. There are no pleural effusions. Minimal pericardial fluid within normal limits. There is reflux of injected contrast into the hepatic veins. This is a nonspecific finding but can be associated with right heart failure, correlate clinically. Refer to abdomen pelvis dictation for abdominal and pelvic findings. IMPRESSION: 1. Negative for pulmonary embolus or infiltrate. 2. Suspicious for esophagitis. Malignancy can have a similar appearance. 3. Two borderline enlarged lymph nodes of uncertain clinical significance. 4. Reflex of contrast into the hepatic veins, see comments above. 5. Two tiny right lung nodules. A 1 year follow-up chest CT could be performed. Dictated by: Marisel Cazares MD 06/23/2020 12:55 Marisel Cazares MD in [facility] 06/23/2020 12:55
[2020-06-23 11:40] LABS: Alanine Aminotransferase 19 U/L (12-78); Aspartate Amino Transferase 23 U/L (17-59); Bilirubin,Unconjugated 0.4 mg/dL (0.0-1.1)
[2020-06-23 11:41] LABS: Albumin Level 4.7 g/dl (3.5-5.0); Alkaline Phosphatase 57 U/L (38-126); Bilirubin,Direct 0.2 mg/dl (0.0-0.4); Bilirubin,Indirect 0.4 mg/dL (0.0-0.9); Bilirubin,Total 0.6 mg/dl (0.2-1.3); Lipase 30 U/L (23-300); Total Protein,Serum 8.3 g/dl (6.3-8.2)
[2020-06-23 11:57] LABS: Troponin I < 0.01 ng/ml (0.00-0.034)
--- NOTE | 2020-06-23 12:03 | PC.NURSE ---
Addendum entered by Elle Montoya, EMT-P 06/23/20 12:04: pt going to rad. Original Note: rad at bedside
--- NOTE | 2020-06-23 13:15 | PC.NURSE ---
Called for Jamin to speak with Patsy
--- NOTE | 2020-06-23 13:49 | PC.NURSE ---
speaking with Jamin at this time.
--- NOTE | 2020-06-23 13:53 | CA_ITS ---
APPROVED REPORT EXAM: Comprehensive 2D, Doppler, and color-flow Echocardiogram Optimization Analyst: Taylor Gamez, RT(R) Ht: 5 ft 7 in Wt: 251lbs BSA: 2.23 BP: 144/91 mmHg Indications: CP, heavy tobacco user, HTN, hyperlipidemia, pain lt arm, GERD, marijuana usage, 2D Dimensions LVOT 2.23 cm (M/F) 1.5-2.5 M-Mode Dimensions RVDd 2.80 cm (0.9-2.6) LA Diam 3.54 cm (1.9-4.0) LVDd 3.69 cm (3.5-5.7) Ao Diam 2.68 cm (2.0-3.7) LVDs 2.84 cm (3.5-5.7) IVSd 1.23 cm (0.6-1.1) PWd 1.23 cm (0.6-1.1) EF (Teich) 47.10% FS 23.00% EDV (Teich) 57.80 mL ESV (Teich) 30.60 mL LV Diastology E Decel Time 163.00 (160-240 msec) E/A Ratio 1.3 MED E' 10.50 (< 7 cm/sec) E'/MED E' Ratio 9.37 (>14) LAT E' 8.90 (<10 cm/sec) E/LAT E' Ratio 11.06 (>14) Mitral Valve MV E Max Jesus. 98.00 (40-130 cm/s) MV A Velocity 73.00 (40-130 cm/s) E/A Ratio 1.34 MV Decel. Time 163.00 (160-240 ms) MV PHT 48.00 ms Left Ventricle Left atrium is normal size, left ventricle is normal size, there is no concentric left ventricular hypertrophy, visually estimated ejection fraction 55% with no regional wall motion abnormality, diastolic parameters are within normal range. Right Ventricle Right atrium is normal size, right ventricle is mildly enlarged with normal contractility. Aortic Valve Aortic valve is minimally thickened and fibrosed, there is no aortic stenosis or aortic insufficiency. Mitral Valve Mitral valve grossly normal, there is trace mitral regurgitation. Tricuspid Valve Tricuspid valve is grossly normal, there is trace tricuspid regurgitation. Pulmonic Valve Pulmonic valve is poorly visualized. Great Vessels Aortic root is normal size. Pericardium No significant pericardial effusion noted. Conclusion 1. Normal left ventricular size, preserved left ventricular systolic function, visually estimated ejection fraction 55% with no regional wall motion abnormality, diastolic parameters are within normal range. 2. Minimally thickened and fibrosed aortic valve without aortic stenosis or aortic insufficiency. 3. Trace mitral and tricuspid regurgitation. 4. Mildly enlarged right ventricle with normal contractility. 5. No significant pericardial effusion noted. Electronically signed by : Tommy Mayer, 06/23/2020 18:04:09
[2020-06-23 14:03] LABS: Microscopic, Urine URINE MICROSCOPIC (MICROSCOPIC)
[2020-06-23 14:07] LABS: Appearance,Urine CLEAR (Clear); Bilirubin,Urine Negative (Negative); Blood, Urine Negative (Negative); Color,Urine YELLOW (Yellow); Glucose,Urine (UA) Negative (Negative); Ketones,Urine Negative (Negative); Leukocyte Esterase,Urine Negative (Negative); Nitrate,Urine Negative (Negative); Protein,Urine Negative (Negative); Specific Gravity, Urine <= 1.005 (1.005-1.030); Urobilinogen,Urine 0.2 EU/dl (0.2)
[2020-06-23 14:15] LABS: Amphetamine/Metha Screen,Urine Negative ng/ml (<1000)
[2020-06-23 14:16] LABS: Barbiturates Screen,Urine Negative ng/ml (<200)
[2020-06-23 14:17] LABS: Benzodiazepines Screen,Urine Negative ng/ml (<200); Cannabinoid Screen,Urine Positive ng/ml (<50)
[2020-06-23 14:18] LABS: Cocaine Screen,Urine Negative ng/ml (<300)
[2020-06-23 14:19] LABS: Methadone Screen,Urine Negative ng/ml (<300); Opiate Screen,Urine Negative ng/ml (<300)
[2020-06-23 14:20] LABS: Phencyclidine Screen,Urine Negative ng/ml (<25)
--- NOTE | 2020-06-23 14:25 | PC.NURSE ---
cv lab staff at
[2020-06-23 14:32] LABS: Troponin I < 0.01 ng/ml (0.00-0.034)
[2020-06-23 15:35] LABS: Bacteria,Urine Trace /lpf; RBC,Urine Occasional #/hpf (0-3); Squamous Epithelial Cell,Urine Occasional #/hpf (0-5)
== END 2020-06-23 15:33 | disposition home or self-care (01) ==
PROVIDERS: Emergency Provider Emergency Medicine; PCP Emergency Medicine
DX: R07.89 Other chest pain (principal); R10.32 Left lower quadrant pain; F41.8 Other specified anxiety disorders; F12.10 Cannabis abuse, uncomplicated; K21.9 Gastro-esophageal reflux disease without esophagitis; I10 Essential (primary) hypertension; Z88.0 Allergy status to penicillin; Z79.899 Other long term (current) drug therapy
CPT/HCPCS: 71046; 71275; 74177; 80048; 80076; 80305; 81001; 83690; 84484; 85025; 93005; 93306; 99284; Q9967

== ENCOUNTER → 2020-06-23 15:57 | Outpatient (CLI) | payer MEDICAID, SELFPAY ==
[2020-06-23 16:00] LABS: Opiate Screen,Urine Negative ng/ml (<300)
[2020-06-23 16:01] LABS: Amphetamine/Metha Screen,Urine Negative ng/ml (<1000); Barbiturates Screen,Urine Negative ng/ml (<200); Benzodiazepines Screen,Urine Negative ng/ml (<200); Cannabinoid Screen,Urine Positive ng/ml (<50); Cocaine Screen,Urine Negative ng/ml (<300); Methadone Screen,Urine Negative ng/ml (<300); Phencyclidine Screen,Urine Negative ng/ml (<25)
== END ==
PROVIDERS: Visit Provider Emergency Medicine
DX: Z79.899 Other long term (current) drug therapy (principal)
CPT/HCPCS: 80305

== ENCOUNTER → 2020-11-08 16:17 | Outpatient (CLI) | payer MEDICAID, SELFPAY ==
[2020-11-08 16:34] LABS: Basophils # 0.1 K/mm3 (0-0.2); Basophils % 1.2 % (0.1-2.0); Eosinophils # 0.6 K/mm3 (0.0-0.4); Eosinophils % 5.2 % (0.1-12.0); Hematocrit 43.1 % (42.0-52.0); Hemoglobin 15.1 g/dL (14.1-18.0); Lymphocytes # 2.9 K/mm3 (0.7-4.5); Lymphocytes % 27.3 % (10-50); Mean Corpuscular Hemoglobin 34.1 pg (27.0-31.2); Mean Corpuscular Volume 97.6 fl (80-94); Mean Platelet Volume 8.5 fl (7.4-10.4); Monocytes # 0.6 K/mm3 (0.1-1.0); Neutrophils # 6.4 K/mm3 (1.8-7.8); Neutrophils % 60.3 % (37.0-80.0); Platelet Count 301 K/mm3 (142-424); Red Blood Count 4.41 M/mm3 (4.60-6.20); Red Cell Distribution Width 16.6 % (11.5-17.5); White Blood Count 10.7 K/mm3 (4.8-10.8)
[2020-11-08 17:17] LABS: Chloride 101 mmol/L (98-107)
[2020-11-08 17:18] LABS: Potassium 4.2 mmoL/L (3.5-5.1); Sodium 140 mmol/L (136-145)
[2020-11-08 17:20] LABS: Alanine Aminotransferase 21 U/L (12-78); Alkaline Phosphatase 65 U/L (38-126); Aspartate Amino Transferase 25 U/L (17-59); Bilirubin,Total 0.5 mg/dl (0.2-1.3); Blood Urea Nitrogen 15 mg/dl (9-20); Estimated Glomerular Filt Rate 47 ml/min (>60); GFR (African American) 57 ML/MIN (>60)
[2020-11-08 17:21] LABS: Albumin Level 5.2 g/dl (3.5-5.0); Albumin/Globulin Ratio 1.7 (1.1-1.8); Anion Gap 18.2 mEq/L (5-15); Carbon Dioxide 25 mmol/L (22.0-30.0); Chol/HDL Ratio 5.1 (1-3.5); Cholesterol 236 mg/dl (140-200); Globulin 3.1 g/dL (1.3-3.2); Glucose 76 mg/dl (74-100); HDL Cholesterol 46 mg/dl (40-60); Total Protein,Serum 8.3 g/dl (6.3-8.2); Triglycerides 296 mg/dl (30-150); VLDL Cholesterol 59 mg/dL (0-40)
[2020-11-08 17:32] LABS: Direct LDL Cholesterol 148.66 mg/dL (100-129)
[2020-11-08 17:35] LABS: Free T4 (Free Thyroxine) 0.74 ng/dl (0.78-2.19)
[2020-11-08 17:36] LABS: 25-OH Vitamin D, Total 47.4 ng/mL (30-100)
[2020-11-08 17:52] LABS: Thyroid Stimulating Hormone 1.61 uIU/mL (0.465-4.68)
[2020-11-10 12:41] LABS: Hep A Ab, IgM Negative (Negative); Hepatitis B Core Antibody IgM Negative (Negative); Hepatitis B Surface Antigen Negative (Negative); Hepatitis C Antibody <0.1 s/co ratio (0.0-0.9)
== END ==
PROVIDERS: Visit Provider Emergency Medicine
DX: Z12.5 Encounter for screening for malignant neoplasm of prostate (principal); R53.83 Other fatigue; K59.00 Constipation, unspecified; R35.1 Nocturia; E03.9 Hypothyroidism, unspecified; R19.00 Intra-abdominal and pelvic swelling, mass and lump, unspecified site
CPT/HCPCS: 80053; 80061; 80074; 82306; 84439; 84443; 85025; G0103

== ENCOUNTER → 2020-12-01 11:16 | Outpatient (CLI) | payer MEDICAID, SELFPAY | PROVIDERS: Visit Provider Physician Assistant | DX: Z01.812 Encounter for preprocedural laboratory examination (principal); Z11.52 Encounter for screening for COVID-19 | CPT/HCPCS: U0003 ==

== ENCOUNTER → 2020-12-05 19:36 | Outpatient (CLI) | payer MEDICAID, SELFPAY | PROVIDERS: PCP Emergency Medicine; Visit Provider Physician Assistant | DX: G47.30 Sleep apnea, unspecified (principal); I10 Essential (primary) hypertension; R40.0 Somnolence; R06.83 Snoring; E66.9 Obesity, unspecified; Z68.37 Body mass index [BMI] 37.0-37.9, adult | CPT/HCPCS: 95810 ==

== ENCOUNTER → 2020-12-06 06:11 | Outpatient (CLI) | payer MEDICAID, SELFPAY ==
--- NOTE | 2020-12-06 06:12 | CA_ITS ---
APPROVED REPORT EXAM: Comprehensive 2D, Doppler, and color-flow Echocardiogram Bell Tier: Hailey Sage, RCS, RVS Ht: 5 ft 7 in Wt: 236lbs BSA: 2.17 BP: 120/80 mmHg Indications: smoker, edema, Family Hx-CAD Echo Enhancing Agent Comments: Poor acoustic windows due to lung impedence 2D Dimensions IVSd 1.04 cm LVEF (Visual) 80.70 % PWd 0.99 cm LA Volume 28.70 mL LVDd 5.25 cm LA Volume Index 13.20 mL/m2 (M/F) 16-34 LVDs 2.64 cm Left Atrium 2.91 cm LVOT 2.02 cm (M/F) 1.5-2.5 M-Mode Dimensions LA Diam 3.66 cm (1.9-4.0) Ao Diam 2.90 cm (2.0-3.7) EPSs 0.27 cm TAPSE 2.29 (<1.7) LV Diastology E Decel Time 197.00 (160-240 msec) E/A Ratio 1.17 MED E' 4.60 (< 7 cm/sec) MED A' 12.50 cm/s E'/MED E' Ratio 20.46 (>14) LAT E' 5.80 (<10 cm/sec) LAT A' 9.30 cm/s E/LAT E' Ratio 16.22 (>14) Aortic Valve LVOT Max 92.00 (70-110 cm/s) LVOT VTI 16.13 cm AoV Peak Jesus. 131.00 (50-130 cm/s) AO Peak GR. 6.80 mmHg AO Mean GR. 3.40 (<5 mmHg) AO VTI 19.27 (18-25 cm) JUAN (VTI) 2.68 (2.5-4.5 cm2) Mitral Valve MV E Max Jesus. 94.00 (40-130 cm/s) MV A Velocity 80.00 (40-130 cm/s) E/A Ratio 1.17 MV Decel. Time 197.00 (160-240 ms) MV PHT 58.00 ms Pulmonary Valve PV Peak Velocity 96.00 (50-150 cm/s) Tricuspid Valve TR P. Velocity 174.00 cm/s RAP Estimate 10.00 mmHg RVSP 22.00 mmHg Left Ventricle Left atrium is normal size, left ventricle is normal size, hyperdynamic left ventricular systolic function, visually estimated ejection fraction was 65% with no regional wall motion abnormality, diastolic parameters are inconclusive. Right Ventricle Right atrium and right ventricle are normal size and contractility. Aortic Valve Aortic valve is grossly normal, there is no aortic stenosis or aortic insufficiency. Mitral Valve Mitral valve grossly normal, there is trace mitral regurgitation. Tricuspid Valve Tricuspid grossly normal, there is trace tricuspid regurgitation, tricuspid regurgitation jet velocity is inadequate for calculation of the right ventricular systolic pressure. Pulmonic Valve Pulmonic valve is poorly visualized. Great Vessels Aortic root is normal size. Pericardium No significant pericardial effusion noted. Conclusion 1. Normal left ventricular size, hyperdynamic left ventricular systolic function, visually estimated ejection fraction over 65% with no regional wall motion abnormality, diastolic parameters are inconclusive. 2. Trace mitral and tricuspid regurgitation. 3. No significant pericardial effusion noted. Electronically signed by : Tommy Mayer MD 12/07/2020 15:30:28
--- NOTE | 2020-12-06 06:12 | US_ITS ---
PROCEDURE: US ABDOMEN COMPLETE CLINICAL INDICATION: swelling ? ascites COMPARISON: [facility] US abdomen limited from 07/24/2017 FINDINGS: PANCREAS: Unremarkable. No obvious mass or abnormal fluid collection. No ductal dilatation LIVER: Diffuse increased echogenicity of the liver with poor through transmission of sound consistent with hepatic steatosis. No focal liver lesion demonstrated. There is appropriate direction of blood flow within non dilated portal vein. RIGHT KIDNEY: Unremarkable. Normal size and echogenicity. No hydronephrosis LEFT KIDNEY: Unremarkable. Normal size and echogenicity. No hydronephrosis GALLBLADDER: No gallstones, gallbladder wall thickening, pericholecystic fluid, or biliary dilatation. AORTA: No evidence of aneurysmal dilatation. SPLEEN: Unremarkable. Normal size and echogenicity ASCITES: None demonstrated. IMPRESSION: Fatty liver otherwise negative Dictated by: Robbi Terry MD 12/06/2020 13:13 Robbi Terry MD in [place] 12/06/2020 13:13
== END ==
PROVIDERS: PCP Emergency Medicine; Visit Provider Physician Assistant
DX: R19.00 Intra-abdominal and pelvic swelling, mass and lump, unspecified site (principal); R60.9 Edema, unspecified; R06.00 Dyspnea, unspecified
CPT/HCPCS: 76700; 93306

== ENCOUNTER 2021-01-09 10:00 | Outpatient (RCR) | payer MEDICAID, SELFPAY ==
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
== END 2021-01-09 10:05 | disposition home or self-care (01) ==
LOC: PT 10:00
PROVIDERS: Visit Provider Emergency Medicine
DX: M54.5 Low back pain (principal)
CPT/HCPCS: 97014; 97035; 97110; 97140; 97163; G0283

== ENCOUNTER → 2021-02-01 13:38 | Outpatient (CLI) | payer MEDICAID, SELFPAY ==
--- NOTE | 2021-02-01 13:38 | MR_ITS ---
PROCEDURE: MR LUMBAR SPINE WO CON CLINICAL INDICATION: back pain Low back pain worse when walking, right leg pain and numbness COMPARISON: CT SPLUMBWO CT lumbar spine wo con from 12/20/2017 TECHNIQUE: Standard multiplanar multiecho sequences are performed without contrast. 3-D MIP and myelographic images are also rendered and reviewed FINDINGS: There is normal alignment. The spinal cord ends at the L1 level. T12-L1, L1-L2, and L2-L3 have an unremarkable appearance. L3-L4: Mild degenerative disc disease with minimal bulging disc with mild facet and ligamentum hypertrophic change and mild bilateral foraminal narrowing. L4-5: Mild facet and ligamentum hypertrophic change. Mild left-sided foraminal narrowing. L5-S1: Minimal bulging disc eccentric toward the right with minimal right foraminal disc protrusion laterally with mild right-sided foraminal narrowing abutting the exiting L5 nerve root. No extruded herniated disc. No canal stenosis. Anterior bridging osteophytes are present at the right sacroiliac joint with fusion anteriorly. IMPRESSION: 1. L3-L4: Mild degenerative disc disease with minimal bulging disc with mild facet and ligamentum hypertrophic change and mild bilateral foraminal narrowing. 2. L4-5: Mild facet and ligamentum hypertrophic change. Mild left-sided foraminal narrowing. 3. L5-S1: Minimal bulging disc eccentric toward the right with minimal right foraminal disc protrusion laterally with mild right-sided foraminal narrowing abutting the exiting L5 nerve root. 4. No disc herniation Dictated by: Robbi Terry MD 02/02/2021 11:27 Robbi Terry MD in [place] 02/02/2021 11:27
== END ==
PROVIDERS: PCP Physician Assistant; Visit Provider Emergency Medicine
DX: M54.5 Low back pain (principal)
CPT/HCPCS: 72148; 76376

== ENCOUNTER → 2021-02-20 08:04 | Outpatient (POV) | payer MEDICAID, SELFPAY ==
[2021-02-20 08:34] VITALS: BP 132/78; PULSE 104; RESP 18; O2SAT 98; BMI 37.5
--- NOTE | 2021-02-20 08:42 | HMH.PMCON ---
Assessment and Plan (1) Degenerative joint disease (DJD) of lumbar spine Status: Chronic Category: Medical Code(s): M47.816 - Spondylosis without myelopathy or radiculopathy, lumbar region (2) Lumbar radiculopathy Status: Chronic Category: Medical Code(s): M54.16 - Radiculopathy, lumbar region - Assessment and plan all Dx Assessment and Plan for all problems:: Patient is a 45-year-old male for consultation for chronic right low back pain with radiation into his right buttock, hip, groin and leg/foot. He is having paresthesia into his right lower extremity. He has tried anti-inflammatories as well as physical therapy for more than 6 weeks and did not get any relief. The patient continues with home stretching and ice and heat therapies. He is currently on Percocet and gabapentin prescribed by his primary care provider. He is interested in injective therapy. Per the patient's MRI report, the patient does have disc bulging toward the right with right foraminal disc protrusion laterally abutting the exiting L5 nerve root. We did discuss his MRI today. We will schedule him for a lumbar epidural steroid injection at L5-S1. Patient is not diabetic and is not on any anticoagulation therapy. Possible side effects of corticosteroids have been discussed with the patient. Risks and benefits of the procedure have been explained to the patient. Patient would like to proceed with the procedure. Patient has been instructed to contact the clinic with any concerns before the next appointment. Dr. Telles has reviewed this note and agrees with this plan of care. This note was dictated using voice recognition software and make contain errors or omissions. HPI - Data of Consult Patient: new to practice Consult date: 02/20/21 Requesting Physician: Carolina Saavedra APRN - Consult Narrative Reason for consult: Right low back pain History of present illness: Mr. Jeong is a 45 year old male who presents today for consultation for chronic low back pain. Patient was referred to us by Dr. Neville. He reports right low back pain for many years. He says that the pain is radiating into his right buttock, right hip, right groin and right posterior leg and into the foot. He says that the pain is knifelike and worse with standing and walking. He has lightening bolt sensation in the leg . He says that he does get some relief with sitting but does reposition often. The patient has had an MRI that was completed on 02/01/2021. He has had physical therapy for more than 6 weeks which made his pain worse. He has tried Aleve and ibuprofen [id number] with no significant relief. He also reports of tried ice and heat therapies which did not give him any relief. Patient is currently on Percocet 5 mg 1 tablet p.o. 3 times daily and gabapentin 600 mg 1 tablet p.o. [address] Neville. He says that he will be out of his medication today. He does rate his pain a 7 out of 10. Patient denies any saddle anesthesia or changes in bowel or bladder habit. CC: Carolina Saavedra APRN [facility] History I have reviewed the patient's past medical history: Yes Medical History: Reports:: Anxiety, Cancer, Depression, Gastroesophageal Reflux Disease(GERD), Hypertension Denies:: Diabetes Mellitus Type 1, Diabetes Mellitus Type 2, MRSA *Have you ever received a pneumonia vaccine?: No *Have you received a flu vaccine this season?: No Other Medical History: Reports: Arthritis Laterality Cases: Left: Arthroscopy Knee, Bilateral: Tonsillectomy Other Surgeries: Yes: No Previous Surgery, Appendectomy, Other Amputation: No Fractures: No - *Social History Smoking Status: Heavy tobacco smoker Tobacco Type: cigarettes # Packs/Day (cigarettes): 3 #Yrs smoked (if former smoker): 20 Alcohol Intake: never Alcohol Intake Frequency:: holidays/special occasions only Substance Use Type: marijuana *Occupational Status:: unemployed Housing: apartment Household Members: n
== END ==
PROVIDERS: Visit Provider Clinical Nurse Specialist Family Health
DX: M47.896 Other spondylosis, lumbar region (principal); M54.16 Radiculopathy, lumbar region
CPT/HCPCS: 99202; G0463

== ENCOUNTER 2021-03-23 09:18 | Day surgery (SDC) | payer MEDICAID, SELFPAY ==
[2021-03-23 09:41] VITALS: BP 123/76; PULSE 110; RESP 18; TEMP 36.4; O2SAT 98; BMI 36.8
[2021-03-23 10:17] VITALS: BP 132/71; PULSE 108; RESP 18; O2SAT 98
[2021-03-23 10:20] VITALS: PULSE 103; RESP 18; O2SAT 98
--- NOTE | 2021-03-23 10:22 | HMH.PMPROC ---
- Procedure Date: 03/23/21 Time: 10:22 Anesthesiologist:: Deidra Arriaza MD Complications:: None Pre-procedure Diagnosis:: Degenerative disc disease of lumbar spine with lumbar radiculopathy Post-procedure Diagnosis:: Same Indications for Procedure:: Patient is a very pleasant 45-year-old white male with chronic low back pain radiating into his legs related to the above diagnosis. He has tried and failed conservative treatment including oral pain medications and physical therapy for greater than 6 weeks. The plan for today is for the patient to undergo a lumbar epidural steroid injection under fluoroscopy at L5-S1 #1. Procedure Details:: Informed consent was obtained and the risk and benefits of the procedure was explained to the patient. The patient was taken to the procedure room. The patient was placed prone on the procedure table. The patient was prepped and draped in sterile fashion. C-arm fluoroscopy was used to view the lumbar spine. Skin and subcutaneous tissues were anesthetized using lidocaine. I placed an 18-gauge epidural needle and advanced into the L5-S1 interspace using fluoroscopic guidance and [id number]-[id number] to air and saline. After confirmation of needle placement in the epidural space with dye I injected 1 mL of lidocaine 1.0% with Depo-Medrol 80 mg. Patient tolerated the procedure well with no complications. Plan and Disposition:: We will follow-up the patient in 2 weeks. Will reevaluate pain symptoms at that time.
[2021-03-23 10:29] VITALS: BP 121/69; PULSE 106; RESP 20; O2SAT 97
== END 2021-03-23 10:30 | disposition home or self-care (01) ==
LOC: SC.PAINP 09:20
PROVIDERS: PCP Emergency Medicine; Visit Provider Anesthesiology Pain Medicine
DX: M51.16 Intervertebral disc disorders with radiculopathy, lumbar region (principal); I10 Essential (primary) hypertension; K21.9 Gastro-esophageal reflux disease without esophagitis; F41.9 Anxiety disorder, unspecified; Z72.0 Tobacco use; E78.5 Hyperlipidemia, unspecified; F32.A Depression, unspecified; F43.10 Post-traumatic stress disorder, unspecified; Z91.030 Bee allergy status; Z88.0 Allergy status to penicillin; Z91.018 Allergy to other foods
CPT/HCPCS: 62323; J1040; Q9966

== ENCOUNTER → 2021-04-12 10:07 | Outpatient (POV) | payer MEDICAID, SELFPAY ==
[2021-04-12 10:25] VITALS: BP 145/89; PULSE 104; RESP 18; O2SAT 98; BMI 36.8
--- NOTE | 2021-04-12 11:03 | HMH.PAINSOAP ---
[facility] Pain Management SOAP Note Subjective:: Patient is a 46-year-old white female who presents today for follow-up. The patient recently had lumbar epidural steroid injection at L5-S1, first injection. He got minimal relief with this injection. He does have pain at his right low back area right buttock, right groin and buttock. The patient does rate his pain an 8 out of 10. Patient with he is very tender to palpation. He is having difficulty standing and walking. He states he does feel better with lying flat. Patient is notably uncomfortable while sitting as well. Review of Systems General: No recent weight changes, no fever, no sleep disturbances Respiratory: No cough, no shortness of air, no recurring pulmonary infections Cardiovascular/peripheral vascular: No chest pain, no palpitations, no edema, no shortness of breath Gastrointestinal: No new onset incontinence, normal bowel movements reported Genitourinary: No new onset incontinence Musculoskeletal: Low back pain with radiation into right buttock, right groin and right leg Psychiatric: [Normal mood/affect] Neurological: [Denies weakness in extremities], [denies balance issues] Objective:: Physical exam General: Alert and oriented x3, no acute distress, pleasant and cooperative Lungs: Respirations even and unlabored, symmetrical chest expansion Eyes: PERRL Musculoskeletal: Flexion and extension of lumbar [spine] somewhat guarded secondary to pain, [antalgic gait noted], positive Meghan's test, positive Yordan's test, positive distraction test, positive compression test Neurological: Speech clear, no gross sensory deficit Assessment:: Right sacroiliitis Plan:: We will schedule patient for right SI joint injection. His pain we will order him a week of prednisone 20 mg 1 tablet p.o. twice daily before the injection. He is having significant pain today with limited ability to walk. He is very tender to palpation to the area on the right side today. We will see him back in the clinic after his injection for further evaluation of symptoms. He will continue with home stretching, anti-inflammatories. He has tried physical therapy for more than 6 weeks. Possible side effects of corticosteroids have been discussed with the patient. Risks and benefits of the procedure have been explained to the patient. Patient would like to proceed with the procedure. Patient has been instructed to contact the clinic with any concerns before the next appointment. Dr. Telles has reviewed this note and agrees with this plan of care. This note was dictated using voice recognition software and make contain errors or omissions. [facility] History I have reviewed the patient's past medical history: Yes Medical History: Reports:: Anxiety, Depression, Gastroesophageal Reflux Disease(GERD), Hyperlipidemia, Hypertension Denies:: Cancer, Diabetes Mellitus Type 1, Diabetes Mellitus Type 2, MRSA, Seizures *Have you ever received a pneumonia vaccine?: No *Have you received a flu vaccine this season?: No Other Medical History: Reports: Arthritis Laterality Cases: Left: Arthroscopy Knee, Bilateral: Tonsillectomy Other Surgeries: Yes: No Previous Surgery, Appendectomy, Other Amputation: No Fractures: No - *Social History Smoking Status: Current every day smoker Tobacco Type: cigarettes # Packs/Day (cigarettes): 1 #Yrs smoked (if former smoker): 20 Alcohol Intake: never Alcohol Intake Frequency:: holidays/special occasions only Substance Use Type: marijuana *Occupational Status:: unemployed Housing: apartment Household Members: none *Travel in the last 8 weeks: None - Psychiatric History Pschychiatric History:: Reports:: Anxiety, Depression Family Hx:: Diabetes, Coronary Artery Disease, Heart Attack
== END ==
PROVIDERS: Visit Provider Clinical Nurse Specialist Family Health
DX: M46.1 Sacroiliitis, not elsewhere classified (principal)
CPT/HCPCS: 99212; G0463

== ENCOUNTER → 2021-04-17 13:52 | Outpatient (CLI) | payer MEDICAID, SELFPAY ==
[2021-04-17 16:56] LABS: Amphetamine/Metha Screen,Urine Negative ng/ml (<1000)
[2021-04-17 16:59] LABS: Barbiturates Screen,Urine Negative ng/ml (<200)
[2021-04-17 17:00] LABS: Benzodiazepines Screen,Urine Negative ng/ml (<200); Cannabinoid Screen,Urine Positive ng/ml (<50)
[2021-04-17 17:01] LABS: Cocaine Screen,Urine Negative ng/ml (<300)
[2021-04-17 17:02] LABS: Methadone Screen,Urine Negative ng/ml (<300); Opiate Screen,Urine Negative ng/ml (<300)
[2021-04-17 17:03] LABS: Phencyclidine Screen,Urine Negative ng/ml (<25)
== END ==
PROVIDERS: Visit Provider Emergency Medicine
DX: Z79.899 Other long term (current) drug therapy (principal)
CPT/HCPCS: 80305

== ENCOUNTER → 2021-06-13 16:00 | Outpatient (CLI) | payer MEDICAID, SELFPAY ==
[2021-06-13 15:34] LABS: Amphetamine/Metha Screen,Urine Negative ng/ml (<1000)
[2021-06-13 15:35] LABS: Barbiturates Screen,Urine Negative ng/ml (<200); Benzodiazepines Screen,Urine Negative ng/ml (<200)
[2021-06-13 15:36] LABS: Cannabinoid Screen,Urine Positive ng/ml (<50); Cocaine Screen,Urine Negative ng/ml (<300)
[2021-06-13 15:37] LABS: Methadone Screen,Urine Negative ng/ml (<300)
[2021-06-13 15:38] LABS: Opiate Screen,Urine Negative ng/ml (<300); Phencyclidine Screen,Urine Negative ng/ml (<25)
== END ==
PROVIDERS: Visit Provider Emergency Medicine
DX: Z79.899 Other long term (current) drug therapy (principal)
CPT/HCPCS: 80305

== ENCOUNTER 2021-06-19 13:25 | Day surgery (SDC) | payer MEDICAID, SELFPAY ==
[2021-06-19 13:36] VITALS: BP 149/83; PULSE 93; RESP 20; TEMP 36.5; O2SAT 98; BMI 34.7
[2021-06-19 14:21] VITALS: BP 149/92; PULSE 107; RESP 18; O2SAT 98
[2021-06-19 14:22] VITALS: BP 149/92; PULSE 102; RESP 18; O2SAT 99
[2021-06-19 14:35] VITALS: BP 137/99; PULSE 100; RESP 20; O2SAT 100
--- NOTE | 2021-06-19 14:52 | HMH.PMPROC ---
- Procedure Date: 06/19/21 Time: 14:52 Anesthesiologist:: Efren Telles MD Complications:: None Pre-procedure Diagnosis:: Sacroiliitis Post-procedure Diagnosis:: Same Indications for Procedure:: Patient is a pleasant 46-year-old white male who we have been treating for low back pain right-sided hip pain. He did have lumbar epidural steroid injection which did not give him any benefit. He is very tender over the right SI joint. Is positive Yordan's test on the right side. Is positive Mikayla test on the right side. Is positive SI joint compression test on the right side. Is positive distraction test on the right side. We will plan a right SI joint injection under fluoroscopy today. Procedure Details:: Right SI joint injection under fluoroscopy Informed consent was obtained and the risks and benefits of the procedure was going to the patient. Patient was taken to the procedure room. Patient was placed prone on the procedure table. The right hip was prepped using ChloraPrep. The skin and subcutaneous tissues were anesthetized using lidocaine. I placed a 22-gauge spinal needle into the inferior aspect of the right SI joint. Needle placement was confirmed with dye. After this we injected 5 mL bupivacaine 0.25% and Depo-Medrol 40 mg into the right SI joint. The patient tolerated the procedure well with no complication. Plan and Disposition:: We will follow-up with him in 2 weeks. Will reevaluate symptoms at that time.
== END 2021-06-19 14:35 | disposition home or self-care (01) ==
LOC: SC.PAINP 13:26
PROVIDERS: PCP Emergency Medicine; Visit Provider Anesthesiology
DX: M46.1 Sacroiliitis, not elsewhere classified (principal); E78.5 Hyperlipidemia, unspecified; I10 Essential (primary) hypertension; K21.9 Gastro-esophageal reflux disease without esophagitis; Z72.0 Tobacco use; M19.90 Unspecified osteoarthritis, unspecified site; G47.33 Obstructive sleep apnea (adult) (pediatric); Z88.0 Allergy status to penicillin
CPT/HCPCS: 27096; G0260; J1040; Q9966

== ENCOUNTER → 2021-07-12 13:09 | Outpatient (POV) | payer MEDICAID, SELFPAY ==
[2021-07-12 13:20] VITALS: BP 110/66; PULSE 62; RESP 20; TEMP 36.7; O2SAT 99; BMI 34.4
--- NOTE | 2021-07-12 16:10 | HMH.PAINSOAP ---
[facility] Pain Management SOAP Note Subjective:: Patient is a pleasant 46-year-old male who presents today for a follow-up after a right sacroiliac injection #1 on June 19, 2021. After the procedure, patient reports significant relief of about 100% for 2 days and rated his pain to be 0 out of 10. Patient denies any issues after the procedure. Today, patient says that the pain is back and rates his pain to be 9 out of 10. Patient is also prescribed clonazepam 0.5 mg twice a day gabapentin 600 mg 3 times a day, Percocet 5 mg 3 times a day that are prescribed by Dr. Neville. Aneudy #[id number] with an active morphine equivalent of 23. ORT score is low risk. General: No recent weight changes, no fever, no sleep disturbances Respiratory: No cough, no shortness of air, no recurring pulmonary infections Cardiovascular/peripheral vascular: No chest pain, no palpitations, no edema, no shortness of breath Gastrointestinal: No new onset incontinence, normal bowel movements reported Genitourinary: No new onset incontinence Musculoskeletal: Low back pain, right hip pain Psychiatric: [Normal mood/affect] Neurological: [Denies weakness in extremities], [denies balance issues] Objective:: General: Alert and oriented x3, no acute distress, pleasant and cooperative, [on room air] Lungs: Respirations even and unlabored, symmetrical chest expansion Eyes: PERRL Musculoskeletal: Flexion and extension of lumbar [spine] somewhat guarded secondary to pain; right hip is positive for RANCHO, Meghan's, compression, and distraction. Neurological: Speech clear, no gross sensory deficit Assessment:: Right sacroiliitis Degenerative disc disease of the lumbar spine with lumbar radiculopathy symptoms Plan:: Patient reports 100% relief after a right SI injection that lasted for 2 days. Patient has tried and failed conservative therapy such as oral medication, physical therapy, and at home exercises for greater than 6 weeks. We will schedule the patient for a repeat right SI injection. Risk and benefits been discussed with the patient. Patient would like to proceed with the procedure. I have discussed with the patient that if he continues to get temporary relief from this procedure, he might be a good candidate for a sacroiliac stabilization procedure. We will discuss this procedure during his injection. Patient has been instructed to contact the clinic with any concerns before the next appointment. Dr. Telles has reviewed this note and agrees with this plan of care. This note was dictated using voice recognition software and make contain errors or omissions. [facility] History Medical History: Reports:: Anxiety, Depression, Gastroesophageal Reflux Disease(GERD), Hyperlipidemia, Hypertension Denies:: Cancer, Diabetes Mellitus Type 1, Diabetes Mellitus Type 2, MRSA, Seizures *Have you ever received a pneumonia vaccine?: No *Have you received a flu vaccine this season?: No Other Medical History: Reports: Arthritis Laterality Cases: Left: Arthroscopy Knee, Bilateral: Tonsillectomy Other Surgeries: Yes: No Previous Surgery, Appendectomy, Other Amputation: No Fractures: No - *Social History Smoking Status: Current every day smoker Tobacco Type: cigarettes # Packs/Day (cigarettes): 1 #Yrs smoked (if former smoker): 20 Alcohol Intake: never Alcohol Intake Frequency:: holidays/special occasions only Substance Use Type: marijuana *Occupational Status:: other Housing: house Household Members: other *Travel in the last 8 weeks: None - Psychiatric History Pschychiatric History:: Reports:: Anxiety, Depression Family Hx:: Diabetes, Coronary Artery Disease, Heart Attack
== END ==
PROVIDERS: Visit Provider Student in an Organized Health Care Education/Training Program
DX: M46.1 Sacroiliitis, not elsewhere classified (principal); M51.16 Intervertebral disc disorders with radiculopathy, lumbar region
CPT/HCPCS: 99212; G0463

== ENCOUNTER 2021-07-27 10:34 | Day surgery (SDC) | payer MEDICAID, SELFPAY ==
[2021-07-27 10:40] VITALS: BP 150/84; BP 160/91; BP 162/90; PULSE 85; PULSE 98; RESP 18; RESP 20; TEMP 36.9; O2SAT 96; O2SAT 98; BMI 34.7
--- NOTE | 2021-07-27 10:57 | P.PCN_ITS ---
- Procedure Date: 07/27/21 Time: 10:57 Anesthesiologist:: Deidra Arriaza MD Complications:: None Pre-procedure Diagnosis:: Right-sided sacroiliitis, chronic low back pain, right-sided hip pain Post-procedure Diagnosis:: Same Indications for Procedure:: Patient is a very pleasant 46-year-old white male who presents today with chronic low back pain and right-sided hip pain related to the above diagnosis. He has tried and failed conservative treatment including oral pain medications and home stretching program for greater than 6 weeks. He is currently prescribed gabapentin 600 mg 3 times daily, Percocet 5 mg 3 times daily as well as clonazepam 0.5 mg twice a day all prescribed by Dr. Neville. He has previously undergone a right-sided SI joint injection #1 on June 19 and note s 100% pain relief for 2 days before the pain returned. The plan for today is for the patient to undergo a repeat right-sided SI joint injection under fluoroscopy. Procedure Details:: Right SI joint injection under fluoroscopy Informed consent was obtained and the risks and benefits of the procedure was going to the patient. Patient was taken to the procedure room. Patient was placed prone on the procedure table. The right hip was prepped using ChloraPrep. The skin and subcutaneous tissues were anesthetized using lidocaine. I placed a 22-gauge spinal needle into the inferior aspect of the right SI joint. Needle placement was confirmed with dye. After this we injected 5 mL bupivacaine 0.25% and Depo-Medrol 40 mg into the right SI joint. The patient tolerated the procedure well with no complication. Plan and Disposition:: We will follow-up with this patient in 2 weeks. Will reassess pain symptoms at that time.
[2021-07-27 11:16] VITALS: BP 140/77; PULSE 93; RESP 20; O2SAT 98
== END 2021-07-27 11:17 | disposition home or self-care (01) ==
LOC: SC.PAINP 10:35
PROVIDERS: PCP Emergency Medicine; Visit Provider Anesthesiology Pain Medicine
DX: M46.1 Sacroiliitis, not elsewhere classified (principal); M54.50 Low back pain, unspecified; G89.29 Other chronic pain; F41.9 Anxiety disorder, unspecified; F32.A Depression, unspecified; K21.9 Gastro-esophageal reflux disease without esophagitis; E78.5 Hyperlipidemia, unspecified; I10 Essential (primary) hypertension; M19.90 Unspecified osteoarthritis, unspecified site; Z72.0 Tobacco use
CPT/HCPCS: 27096; G0260; Q9966

== ENCOUNTER → 2021-09-26 14:51 | Outpatient (CLI) | payer MEDICAID, SELFPAY ==
[2021-09-26 13:21] LABS: Amphetamine/Metha Screen,Urine Negative ng/ml (<1000)
[2021-09-26 13:22] LABS: Barbiturates Screen,Urine Negative ng/ml (<200); Benzodiazepines Screen,Urine Negative ng/ml (<200)
[2021-09-26 13:23] LABS: Cannabinoid Screen,Urine Positive ng/ml (<50)
[2021-09-26 13:24] LABS: Cocaine Screen,Urine Negative ng/ml (<300); Methadone Screen,Urine Negative ng/ml (<300)
[2021-09-26 13:25] LABS: Opiate Screen,Urine Negative ng/ml (<300)
[2021-09-26 13:26] LABS: Phencyclidine Screen,Urine Negative ng/ml (<25)
== END ==
PROVIDERS: PCP Emergency Medicine; Visit Provider Emergency Medicine
DX: Z79.899 Other long term (current) drug therapy (principal)
CPT/HCPCS: 80305

== ENCOUNTER → 2021-09-27 10:47 | Outpatient (POV) | payer MEDICAID, SELFPAY ==
[2021-09-27 11:00] VITALS: BP 134/76; PULSE 96; RESP 20; TEMP 36.2; O2SAT 97; BMI 35.9
--- NOTE | 2021-09-27 12:32 | HMH.PAINSOAP ---
[facility] Pain Management SOAP Note Subjective:: Patient is a pleasant 46-year-old male who presents today for follow-up. Patient is currently being treated for degenerative disc disease of lumbar spine, lumbar facet arthropathy, lumbar spondylosis, right-sided sacroiliitis. We have been managing this patient with injective therapy. He has had 2 right SI injection in the last 2 to 3 months that provided significant relief of 90 to 100% for 2 to 3 days. Denies any issues after his procedure. He presents today with worsening low back pain and right-sided hip pain. He cannot tolerate any prolonged activity such as sitting, standing, and walking. This is worse with any lumbar flexion, extension and especially rotation. Denies any loss of bowel and bladder functions. For pain, he takes gabapentin 600 mg 3 times a day and Percocet 5 mg 3 times a day that are prescribed by Dr. Neville. Aneudy [id number] with an active morphine equivalent of 23. Review of Systems: General: No recent weight changes, no fever, no sleep disturbances Respiratory: No cough, no shortness of air, no recurring pulmonary infections Cardiovascular/peripheral vascular: No chest pain, no palpitations, no edema, no shortness of breath Gastrointestinal: No new onset incontinence, normal bowel movements reported Genitourinary: No new onset incontinence Musculoskeletal: Low back pain, right-sided hip pain Psychiatric: [Normal mood/affect] Neurological: [Denies weakness in extremities], [denies balance issues] Objective:: Physical Exam: General: Alert and oriented x3, no acute distress, pleasant and cooperative Lungs: Respirations even and unlabored, symmetrical chest expansion Eyes: PERRL Musculoskeletal: Flexion and extension of lumbar [spine] somewhat guarded secondary to pain, [antalgic gait noted]; patient is tender to palpation around the lumbar facets. Right SI is positive for RANCHO, Meghan's, Hope's, Gaenslen's, compression, and distraction. Neurological: Speech clear, no gross sensory deficit Assessment:: Degenerative disc disease of lumbar spine with lumbar radiculopathy symptoms Lumbar facet arthropathy Lumbar spondylosis Sacroiliitis Plan:: Patient presents today with 2 successful right-sided SI injection that provided 90 to 100% relief for at least 2 days. He is complaining of worsening low back pain and right hip pain today. He is more concerned about his low back pain today. He is tender to palpation around the lumbar facets especially at L4-L5 and L5-S1. He has had epidural steroid injection that provided 1 to 2 days of relief. We will schedule the patient for diagnostic facet joint/medial branch block injections bilaterally at L4-L5 and L5-S1. Risk and benefits of this procedure been discussed with the patient. Patient is not on any blood thinners. We will also schedule the patient for a right sided SI RFA. Patient is wanting to opt out from SI joint stabilization at this time. Patient has been instructed to contact the clinic with any concerns before the next appointment. Dr. Telles has reviewed this note and agrees with this plan of care. This note was dictated using voice recognition software and make contain errors or omissions. [facility] History Medical History: Reports:: Anxiety, Depression, Gastroesophageal Reflux Disease(GERD), Hyperlipidemia, Hypertension Denies:: Cancer, Diabetes Mellitus Type 1, Diabetes Mellitus Type 2, MRSA, Seizures *Have you ever received a pneumonia vaccine?: No *Have you received a flu vaccine this season?: No Other Medical History: Reports: Arthritis Laterality Cases: Left: Arthroscopy Knee, Bilateral: Tonsillectomy Other Surgeries: Yes: No Previous Surgery, Appendectomy, Other Amputation: No Fractures: No - *Social History Smoking Status: Current every day smoker Tobacco Type: cigarettes # Packs/Day (cigarettes): 1 #Yrs smoked (if former smoker): 20 Alcohol Intake: never Alcohol Intake Frequency:: holidays/special occ
== END ==
PROVIDERS: Visit Provider Student in an Organized Health Care Education/Training Program
DX: M51.16 Intervertebral disc disorders with radiculopathy, lumbar region (principal); M54.06 Panniculitis affecting regions of neck and back, lumbar region; M47.896 Other spondylosis, lumbar region; M46.1 Sacroiliitis, not elsewhere classified
CPT/HCPCS: 99212; G0463

== ENCOUNTER 2021-10-12 07:49 | Day surgery (SDC) | payer MEDICAID, SELFPAY ==
[2021-10-12 07:56] VITALS: BP 140/79; PULSE 102; RESP 18; TEMP 36.4; O2SAT 100; BMI 35.9
[2021-10-12 08:19] VITALS: BP 140/84; PULSE 102; RESP 18; O2SAT 98
[2021-10-12 08:20] VITALS: BP 134/86; PULSE 102; RESP 18; O2SAT 98
--- NOTE | 2021-10-12 08:25 | P.PCN_ITS ---
- Procedure Date: 10/12/21 Time: 08:26 Anesthesiologist:: Josh Huerta CRNA Complications:: None Pre-procedure Diagnosis:: Degenerative disc disease lumbar spine. Lumbar facet arthropathy lumbar spine L4-5, L5-S1 Post-procedure Diagnosis:: Same Indications for Procedure:: Is a pleasant 46-year-old who has had multiple rounds of lumbar facet blocks L4- 5, L5-S1. Today presents for repeat L4-5, L5-S1 bilateral facet blocks. Patient describes having 4 to 6 weeks of relief in the lumbar spine following these injections. She rates his low back pain 7/10. Patient describes his low back pain is constant, dull, aching at times. Pain intensifies when sitting for any length of time. Walking for any length of time. He currently takes gabapentin 600 mg 1 p.o. 3 times daily and Percocet 5 mg 1 p.o. 3 times daily. Both of these medications are prescribed by Dr. Neville. Procedure Details:: Informed consent was obtained and the risk and benefits of the procedure was explained to the patient. Patient was taken to the procedure room where noninvasive monitors were placed, including noninvasive blood pressure cuff as well as pulse oximeter. The area over the lumbar spine was cleansed using chlorhexidine as a cleansing solution. I anesthetized the skin and subcutaneous tissues with 1% Lidocaine. I placed 22-gauge spinal needles into the facet joint/ medial branches of [ L4-L5, and L5-S1] bilaterally. Needle placement was confirmed with fluoroscopy. After confirmation of needle placement, each site was injected with 1 mL of 1% lidocaine and 0.25 % Marcaine and 10 mg of Depo- Medrol. A total of 80 mg of depo medrol was used for bilateral medial branch blocks of [L4-L5, and L5-S1] bilaterally. Patient tolerated the procedure without difficulty. There were no complications. Plan and Disposition:: Patient was discharged without incident. He will return for follow-up visit. Future radiofrequency ablation L4-5, L5-S1.
[2021-10-12 08:40] VITALS: BP 139/75; PULSE 97; RESP 20; O2SAT 99
== END 2021-10-12 08:40 | disposition home or self-care (01) ==
LOC: SC.PAINP 07:50
PROVIDERS: PCP Emergency Medicine; Visit Provider Nurse Anesthetist, Certified Registered
DX: M51.36 Other intervertebral disc degeneration, lumbar region (principal); M47.816 Spondylosis without myelopathy or radiculopathy, lumbar region
CPT/HCPCS: 64493; 64494; J1040

== ENCOUNTER → 2021-10-15 12:56 | Outpatient (POV) | payer MEDICAID, SELFPAY ==
[2021-10-15 13:37] VITALS: BP 143/90; PULSE 96; RESP 18; TEMP 36.7; O2SAT 98; BMI 35.9
--- NOTE | 2021-10-15 14:28 | HMH.PAINSOAP ---
[facility] Pain Management SOAP Note Subjective:: Patient is a pleasant 46-year-old male who presents today for follow-up after a diagnostic medial branch block injections at L4-L5 and L5-S1 on October 12, 2021. Patient is current being treated for degenerative disc disease of lumbar spine, lumbar facet arthropathy, lumbar spondylosis, sacroiliitis. After procedure, patient had significant relief of 90 to 100% that lasted for 3 days. Patient was able to increase his activity during that time. Today, patient states that he is back to baseline. He rates his pain as 8 out of 10. We have also managing the patient's right-sided sacroiliitis. He has had 2 SI injections that provided 90 to 100% relief. He is scheduled for a right SI RFA on October 26, 2021. For pain, he takes gabapentin 600 mg 3 times a day and Percocet 5 mg 3 times a day that are prescribed by Dr. Neville. Aneudy [id number] with an active morphine equivalent of 23. Review of Systems: General: No recent weight changes, no fever, no sleep disturbances Respiratory: No cough, no shortness of air, no recurring pulmonary infections Cardiovascular/peripheral vascular: No chest pain, no palpitations, no edema, no shortness of breath Gastrointestinal: No new onset incontinence, normal bowel movements reported Genitourinary: No new onset incontinence Musculoskeletal: Low back pain, right hip pain Psychiatric: [Normal mood/affect] Neurological: [Denies weakness in extremities], [denies balance issues] Objective:: Physical Exam: General: Alert and oriented x3, no acute distress, pleasant and cooperative Lungs: Respirations even and unlabored, symmetrical chest expansion Eyes: PERRL Musculoskeletal: Flexion and extension of lumbar [spine] somewhat guarded secondary to pain, [antalgic gait noted]; Neurological: Speech clear, no gross sensory deficit Assessment:: Degenerative disc disease of the lumbar spine with lumbar radiculopathy symptoms, lumbar facet arthropathy, lumbar spondylosis, sacroiliitis Plan:: Patient had significant relief after the diagnostic medial branch block/facet injections bilaterally at L4-L5 and L5-S1. We will schedule the patient for a repeat diagnostic medial branch block injections at bilateral L4-L5 and L5-S1. Risk and benefits have been discussed with the patient. Patient would like to proceed with this procedure. Patient is not on any blood thinners. If the patient gets significant relief from this diagnostic medial branch block, we will schedule the patient for a therapeutic lumbar RFA at bilateral L4-L5 and L5-S1. Patient has a right-sided SI RFA scheduled on October 26, 2021. Patient is now interested in moving forward with any SI joint stabilization procedure. Patient has been instructed to contact the clinic with any concerns before the next appointment. Dr. Telles has reviewed this note and agrees with this plan of care. This note was dictated using voice recognition software and make contain errors or omissions. [facility] History Medical History: Reports:: Anxiety, Depression, Gastroesophageal Reflux Disease(GERD), Hyperlipidemia, Hypertension Denies:: Cancer, Diabetes Mellitus Type 1, Diabetes Mellitus Type 2, MRSA, Seizures *Have you ever received a pneumonia vaccine?: No *Have you received a flu vaccine this season?: No Other Medical History: Reports: Arthritis Laterality Cases: Left: Arthroscopy Knee, Bilateral: Tonsillectomy Other Surgeries: Yes: No Previous Surgery, Appendectomy, Other Amputation: No Fractures: No - *Social History Smoking Status: Current every day smoker Tobacco Type: cigarettes # Packs/Day (cigarettes): 1 #Yrs smoked (if former smoker): 20 Alcohol Intake: never Alcohol Intake Frequency:: holidays/special occasions only Substance Use Type: marijuana *Occupational Status:: other Housing: house Household Members: other *Travel in the last 8 weeks: None - Psychiatric History Pschychiatric History:: Reports:: Anxiety, Depression Famil
== END ==
PROVIDERS: Visit Provider Student in an Organized Health Care Education/Training Program
DX: M51.16 Intervertebral disc disorders with radiculopathy, lumbar region (principal); M54.06 Panniculitis affecting regions of neck and back, lumbar region; M43.06 Spondylolysis, lumbar region; M46.1 Sacroiliitis, not elsewhere classified
CPT/HCPCS: 99212; G0463

== ENCOUNTER 2021-10-26 09:47 | Day surgery (SDC) | payer MEDICAID, SELFPAY ==
[2021-10-26 09:57] VITALS: BP 125/80; PULSE 105; RESP 20; TEMP 36.9; O2SAT 95; BMI 35.9
[2021-10-26 10:08] VITALS: BP 136/79; PULSE 101; RESP 20; O2SAT 95
--- NOTE | 2021-10-26 10:28 | HMH.PMPROC ---
- Procedure Date: 10/26/21 Time: 10:28 Anesthesiologist:: Efren Telles MD Complications:: None Pre-procedure Diagnosis:: Sacroiliitis Post-procedure Diagnosis:: Same Indications for Procedure:: Patient is a pleasant 46-year-old white male who we have been treating for low back pain with lumbar radicular symptoms and sacroiliitis. He has done well with previous SI joint injections however they have not been long-lasting. He gets up to 80 to 90% relief in his pain symptoms. He presents for radiofrequency ablation to the right SI joint today. Procedure Details:: Right SI joint RFA Consent was obtained risk and benefits of the procedure were explained to the patient. Patient was taken the procedure room. The skin and subtenons tissues were anesthetized using lidocaine. For RF needles were placed on the medial aspect of the right SI joint. This did encompass the sacral nerves innervating the right SI joint. We underwent sensory stimulation. There is good sensory stimulation at 1 V. We underwent motor stimulation. There is no motor stimulation at 2.5 V. We then anesthetized with bupivacaine and Depo-Medrol. We then burned for 4 minutes at 80 ?C all 4 needles. Patient tolerated the procedure well with no complications. Plan and Disposition:: We will follow-up with him in 2 weeks. Will reevaluate his symptoms at that time.
[2021-10-26 10:36] VITALS: BP 139/83; PULSE 96; RESP 18; O2SAT 97
== END 2021-10-26 10:37 | disposition home or self-care (01) ==
LOC: SC.PAINP 09:48
PROVIDERS: PCP Emergency Medicine; Visit Provider Anesthesiology
DX: M46.1 Sacroiliitis, not elsewhere classified (principal); M54.16 Radiculopathy, lumbar region
CPT/HCPCS: 64625; J1040

== ENCOUNTER 2021-11-09 08:42 | Day surgery (SDC) | payer MEDICAID, SELFPAY ==
[2021-11-09 08:47] VITALS: BP 158/81; PULSE 108; RESP 20; TEMP 36.6; O2SAT 98; BMI 35.9
--- NOTE | 2021-11-09 08:57 | P.PCN_ITS ---
- Procedure Date: 11/09/21 Time: 08:57 Anesthesiologist:: Josh Huerta CRNA Complications:: None Pre-procedure Diagnosis:: Degenerative disc disease lumbar spine. Lumbar spondylosis. Lumbar facet arthropathy. Post-procedure Diagnosis:: Same Indications for Procedure:: This is a very pleasant 46-year-old male that comes our clinic today for an repeat injection lumbar facet L4-5, L5-S1 bilaterally. Patient had significant improvement lasting 7-10 days after his first round of lumbar medial branch block. Procedure Details:: Informed consent was obtained and the risk and benefits of the procedure was explained to the patient. Patient was taken to the procedure room where noninvasive monitors were placed, including noninvasive blood pressure cuff as well as pulse oximeter. The area over the lumbar spine was cleansed using chlorhexidine as a cleansing solution. I anesthetized the skin and subcutaneous tissues with 1% Lidocaine. I placed 22-gauge spinal needles into the facet joint/ medial branches of L4-L5, and L5-S1 bilaterally. Needle placement was confirmed with fluoroscopy. After confirmation of needle placement, each site was injected with 1 mL of 1% lidocaine and 0.25 % Marcaine and 10 mg of Depo- Medrol. A total of 80 mg of depo medrol was used for bilateral medial branch blocks of L4-L5, and L5-S1 bilaterally. Patient tolerated the procedure without difficulty. There were no complications. Plan and Disposition:: Patient was discharged without incident.
[2021-11-09 09:00] VITALS: BP 117/72; PULSE 111; RESP 20
[2021-11-09 09:08] VITALS: BP 132/70; PULSE 96; RESP 20; O2SAT 98
== END 2021-11-09 09:09 | disposition home or self-care (01) ==
LOC: SC.PAINP 08:43
PROVIDERS: PCP Emergency Medicine; Visit Provider Nurse Anesthetist, Certified Registered
DX: M51.36 Other intervertebral disc degeneration, lumbar region (principal); M47.896 Other spondylosis, lumbar region; M54.06 Panniculitis affecting regions of neck and back, lumbar region
CPT/HCPCS: 64493; 64494; J1040

== ENCOUNTER → 2021-11-26 11:14 | Outpatient (POV) | payer MEDICAID, SELFPAY ==
[2021-11-26 11:34] VITALS: BP 127/84; PULSE 84; RESP 20; BMI 34.7
--- NOTE | 2021-11-26 14:00 | HMH.PAINSOAP ---
[facility] Pain Management SOAP Note Subjective:: Patient is a pleasant 46-year-old male who presents today for follow-up. Patient is currently being treated for degenerative disc disease of lumbar spine, lumbar facet arthropathy, lumbar spondylosis, sacroiliitis. We have been managing this patient with conservative therapy such as injections and ablations. He recently had a right-sided RFA that continues to provide significant relief. When we last saw this patient we had scheduled the patient for a diagnostic medial branch block bilaterally at L4-L5 and L5-S1 #2. Today, patient states that he had 90 to 100% relief for 4 days after these injections. Patient is interested in moving forward with lumbar RFA. Rates pain today as 9 out of 10. Aneudy [id number] with an active morphine equivalent of 23. He is currently prescribed gabapentin 600 mg 3 times a day and Percocet 5 mg 3 times a day by Dr. Neville. Review of Systems: General: No recent weight changes, no fever, no sleep disturbances Respiratory: No cough, no shortness of air, no recurring pulmonary infections Cardiovascular/peripheral vascular: No chest pain, no palpitations, no edema, no shortness of breath Gastrointestinal: No new onset incontinence, normal bowel movements reported Genitourinary: No new onset incontinence Musculoskeletal: Low back pain Psychiatric: [Normal mood/affect] Neurological: [Denies weakness in extremities], [denies balance issues] Objective:: Physical Exam: General: Alert and oriented x3, no acute distress, pleasant and cooperative Lungs: Respirations even and unlabored, symmetrical chest expansion Eyes: PERRL Musculoskeletal: Flexion and extension of lumbar [spine] somewhat guarded secondary to pain, [antalgic gait noted]; tender to palpation around the lumbar facets, positive Kemps Neurological: Speech clear, no gross sensory deficit Assessment:: Degenerative disc disease of lumbar spine, lumbar facet arthropathy, lumbar spondylosis, sacroiliitis Plan:: Patient has had 3 successful diagnostic medial branch block/facet injections at L4-L5 and L5-S1 bilaterally. He typically got 90 to 100% that lasted for 3 to 4 days. Patient has tried and failed conservative therapies such as physical therapy and home exercises for greater than 6 weeks. We will schedule this patient for a therapeutic lumbar RFA bilaterally at the L4-L5 and L5-S1. Patient is not on any blood thinners. Patient has been instructed to contact the clinic with any concerns before the next appointment. Dr. Telles has reviewed this note and agrees with this plan of care. This note was dictated using voice recognition software and make contain errors or omissions. [facility] History Medical History: Reports:: Anxiety, Depression, Gastroesophageal Reflux Disease(GERD), Hyperlipidemia, Hypertension Denies:: Cancer, Diabetes Mellitus Type 1, Diabetes Mellitus Type 2, MRSA, Seizures *Have you ever received a pneumonia vaccine?: No *Have you received a flu vaccine this season?: No Other Medical History: Reports: Arthritis Laterality Cases: Left: Arthroscopy Knee, Bilateral: Tonsillectomy Other Surgeries: Yes: No Previous Surgery, Appendectomy, Other Amputation: No Fractures: No - *Social History Smoking Status: Current every day smoker Tobacco Type: cigarettes # Packs/Day (cigarettes): 1 #Yrs smoked (if former smoker): 20 Alcohol Intake: never Alcohol Intake Frequency:: holidays/special occasions only Substance Use Type: marijuana *Occupational Status:: employed Housing: house Household Members: other *Travel in the last 8 weeks: None - Psychiatric History Pschychiatric History:: Reports:: Anxiety, Depression Family Hx:: No significant family history
== END ==
PROVIDERS: Visit Provider Student in an Organized Health Care Education/Training Program
DX: M51.36 Other intervertebral disc degeneration, lumbar region (principal); M46.1 Sacroiliitis, not elsewhere classified; M47.26 Other spondylosis with radiculopathy, lumbar region
CPT/HCPCS: 99212; G0463

== ENCOUNTER 2021-12-21 13:10 | Day surgery (SDC) | payer MEDICAID, SELFPAY ==
[2021-12-21 13:26] VITALS: BP 149/79; PULSE 104; RESP 20; TEMP 37.1; O2SAT 97; BMI 34.7
--- NOTE | 2021-12-21 13:49 | P.PCN_ITS ---
- Procedure Date: 12/21/21 Time: 13:49 Anesthesiologist:: Josh Huerta CRNA Complications:: None Pre-procedure Diagnosis:: Degenerative disc disease lumbar spine multilevels. Lumbar radiculopathy symptoms. Lumbar spondylosis. Lumbar facet arthropathy. Post-procedure Diagnosis:: Same Indications for Procedure:: This patient is a pleasant 46-year-old male that comes our clinic for r adiofrequency ablation L4-5, L5-S1 bilaterally. He has had this in the past with significant improvement. He rates his low back pain 6/10. Procedure Details:: Lumbar RFA None Pre-procedure Diagnosis: Degenerative disc disease of lumbar spine with lumbar spondylosis and facet arthropathy Post-procedure Diagnosis: Same Indications for Procedure: Patient is a pleasant 68-year-old white female who we are treating for low back pain with lumbar spondylosis and facet arthropathy. She is done well with medial branch blocks with 80% relief of her pain symptoms. She presents for radiofrequency ablation to the facet joint/medial branches of L3-L4, L4-5 and L5-S1 today. She has already had the right side done and is doing very well. She presents for the left side today. Procedure Details: Lumbar RFA Informed consent was obtained and the risk and benefits of the procedure was explained to the patient. Patient was placed prone on the procedure table. The patient was prepped and draped in sterile fashion. C-arm fluoroscopy was used to view the lumbar spine. The skin and subcutaneous tissues were anesthetized using lidocaine. I placed 20-gauge RF needles into the facet joints of L3-L4, L4-L5 and L5-S1 on the left side. We underwent sensory stimulation. There is good sensory stimulation at 0.8 V. We underwent motor stimulation. There is no motor stimulation at 2 V. We then anesthetized these levels with lidocaine and Depo- Medrol. I used a total of 40 mg Depo-Medrol for all 3 levels. I then burned all 3 levels of L3-L4, L4-5 and L5-S1 on the left side for 4 minutes at 80 ?C. Patient tolerated the procedure well with no complication. Plan and Disposition:: We will follow-up with this patient in 2 weeks. We will reevaluate her symptoms at that time. Plan and Disposition:: Patient was discharged without incident.
[2021-12-21 13:51] VITALS: BP 109/76; PULSE 96; RESP 18; O2SAT 99
== END 2021-12-21 13:52 | disposition home or self-care (01) ==
LOC: SC.PAINP 13:11
PROVIDERS: PCP Emergency Medicine; Visit Provider Nurse Anesthetist, Certified Registered
DX: M51.16 Intervertebral disc disorders with radiculopathy, lumbar region (principal); M47.26 Other spondylosis with radiculopathy, lumbar region
CPT/HCPCS: 64635; 64636; J1040

== ENCOUNTER → 2022-01-09 08:37 | Outpatient (POV) | payer MEDICAID, SELFPAY ==
[2022-01-09 09:17] VITALS: BP 157/85; PULSE 95; RESP 18; TEMP 36.7; O2SAT 98; BMI 34.7
--- NOTE | 2022-01-09 09:20 | EXP.PAIN.SOA ---
[facility] Pain Management SOAP Note Subjective:: Patient is a pleasant 46-year-old male that presents today for follow-up of lumbar RFA on 12/21/2021. We are currently treating the patient for degenerative disc disease of lumbar spine multilevels with lumbar radiculopathy symptoms, lumbar spondylosis, lumbar facet arthropathy. Today the patient states that he has gotten 50 to 75% improvement with the lumbar RFA however states it is no longer helping with his pain. Today he rates his pain a 7 out of 10 and states it is all in his low back that radiates down bilateral lower extremities. He states this as a aching, throbbing sensation that is tingling in his lower extremities. He states this is worse with increased activity. Patient is currently managed with gabapentin 600 mg 3 times a day and Percocet 5 mg 3 times a day by Dr. Neville. Patient denies any side effects from these medications. He states these medications are adequately helping manage his pain. His Aneduy is [id number]. It is been reviewed and appropriate. Review of Systems: General: No recent weight changes, no fever, no sleep disturbances Respiratory: No cough, no shortness of air, no recurring pulmonary infections Cardiovascular/peripheral vascular: No chest pain, no palpitations, no edema, no shortness of breath Gastrointestinal: No new onset incontinence, normal bowel movements reported Genitourinary: No new onset incontinence Musculoskeletal: Low back pain, bilateral leg pain Psychiatric: [Normal mood/affect] Neurological: [Denies weakness in extremities], [denies balance issues] Objective:: Physical Exam: General: Alert and oriented x3, no acute distress, pleasant and cooperative Lungs: Respirations even and unlabored, symmetrical chest expansion Eyes: PERRL Musculoskeletal: Flexion and extension of lumbar [spine] somewhat guarded secondary to pain, [antalgic gait noted] Neurological: Speech clear, no gross sensory deficit Assessment:: Degenerative disc disease of lumbar spine with lumbar radiculopathy symptoms multilevel, lumbar spondylosis, lumbar facet arthropathy Plan:: Patient continues to have significant pain in his low back that radiates into his bilateral extremities. I have discussed with the patient regarding a lumbar epidural steroid injection. Risk and benefits were discussed with the patient. He would like to proceed forward with this injection. He is not currently on any blood thinners. I will also order the patient a compounding cream at today's visit. We will schedule the patient for a lumbar epidural steroid injection of L4-L5. Patient has been instructed to contact the clinic with any concerns before the next appointment. Dr. Telles has reviewed this note and agrees with this plan of care. This note was dictated using voice recognition software and make contain errors or omissions. [facility] Medical History (Updated 06/13/21 @ 14:24 by Fabricio Neville MD) Depression Insomnia Neurogenic claudication due to lumbar spinal stenosis Neuropathy involving both lower extremities Nocturia Schizophrenia Tobacco dependence Social History Smoking Status: Current every day smoker tobacco type: cigarettes packs per day: 1 alcohol intake: never counseling provided: none substance use type: marijuana current occupational status: other Travel in the last 8 weeks: None household members: other housing: house number of children: 0 current occupational exposures/hazards: No caffeine: Yes
== END ==
PROVIDERS: PCP Emergency Medicine; Visit Provider Nurse Practitioner Family
DX: M51.16 Intervertebral disc disorders with radiculopathy, lumbar region (principal); M47.26 Other spondylosis with radiculopathy, lumbar region
CPT/HCPCS: 99212; G0463

== ENCOUNTER 2022-01-22 10:45 | Day surgery (SDC) | payer MEDICAID, SELFPAY ==
[2022-01-22 10:53] VITALS: BP 145/75; PULSE 100; RESP 18; TEMP 37.1; O2SAT 98; BMI 34.6
[2022-01-22 11:17] VITALS: BP 148/60; PULSE 101; RESP 18; O2SAT 98
--- NOTE | 2022-01-22 11:35 | EXP.PAIN.PRO ---
Procedure Date: 01/22/22 Time: 11:36 Anesthesiologist:: Josh Huerta CRNA Complications:: None Pre-procedure Diagnosis:: Degenerative disc disease lumbar spine multilevels. Lumbar radiculopathy symptoms. Post-procedure Diagnosis:: Same Indications for Procedure:: Very pleasant 46-year-old male that comes to our clinic today for repeat lumbar epidural steroid injection. He has had significant improvement terms of his low back pain as well as bilateral hip and leg radicular symptoms with previous injections. He rates his pain today 6/10. Procedure Details:: Procedure: Lumbar epidural steroid injection under fluoroscopy Informed consent was obtained and the risks and benefits of the procedure were explained to the patient. The patient was taken to the procedure room and noninvasive monitors placed, including noninvasive blood pressure cuff and pulse oximeter. The back was viewed using C-arm Fluoroscopy and prepped using Betadine as a cleansing solution and the L4-L5 interspace was palpated. Skin and subcutaneous tissues were anesthetized using lidocaine 1.5% and a 25-gauge needle. After this, an 18-gauge Touhy epidural needle was placed into the L4-L5 interspace and advanced using fluoroscopic guidance and loss of resistance to air until the epidural space was encountered. After confirmation of needle placement in the epidural space, with dye, a solution containing lidocaine 1.5%, 4 mL and Depo-Medrol 80 mg were incrementally injected into the lumbar epidural space. The patient tolerated the procedure well with no complications. The patient was observed in the Pain Clinic and then discharged home neurologically intact. Plan and Disposition:: Patient was discharged without incident.
== END 2022-01-22 11:17 | disposition home or self-care (01) ==
LOC: SC.PAINP 10:45
PROVIDERS: PCP Emergency Medicine; Visit Provider Nurse Anesthetist, Certified Registered
DX: M51.16 Intervertebral disc disorders with radiculopathy, lumbar region (principal); M47.26 Other spondylosis with radiculopathy, lumbar region; F17.210 Nicotine dependence, cigarettes, uncomplicated
CPT/HCPCS: 62323; J1040

== ENCOUNTER → 2022-01-23 16:30 | Outpatient (CLI) | payer MEDICAID, SELFPAY ==
[2022-01-23 14:40] LABS: Basophils # 0.1 K/mm3 (0-0.2); Basophils % 0.8 % (0.1-2.0); Eosinophils # 0.2 K/mm3 (0.0-0.4); Eosinophils % 1.2 % (0.1-12.0); Hematocrit 42.3 % (42.0-52.0); Hemoglobin 13.1 g/dL (14.1-18.0); Lymphocytes # 2.5 K/mm3 (0.7-4.5); Lymphocytes % 18.3 % (10-50); Mean Corpuscular Hemoglobin 33.8 pg (27.0-31.2); Mean Corpuscular Volume 109.2 fl (80-94); Mean Platelet Volume 8.9 fl (7.4-10.4); Monocytes # 0.5 K/mm3 (0.1-1.0); Monocytes % 3.9 % (1.7-9.3); Neutrophils # 10.2 K/mm3 (1.8-7.8); Neutrophils % 75.7 % (37.0-80.0); Platelet Count 297 K/mm3 (142-424); Red Blood Count 3.87 M/mm3 (4.60-6.20); Red Cell Distribution Width 17.1 % (11.5-17.5); White Blood Count 13.4 K/mm3 (4.8-10.8)
[2022-01-23 15:14] LABS: Alanine Aminotransferase 23 U/L (12-78); Albumin Level 4.6 g/dl (3.5-5.0); Albumin/Globulin Ratio 1.7 (1.1-1.8); Alkaline Phosphatase 67 U/L (38-126); Anion Gap 19.1 mEq/L (5-15); Aspartate Amino Transferase 25 U/L (17-59); Bilirubin,Total 0.2 mg/dl (0.2-1.3); Blood Urea Nitrogen 14 mg/dl (9-20); Calcium 9.5 mg/dl (8.4-10.2); Carbon Dioxide 25 mmol/L (22.0-30.0); Chloride 96 mmol/L (98-107); Chol/HDL Ratio 3.4 (1-3.5); Cholesterol 160 mg/dl (140-200); Estimated Glomerular Filt Rate 65 ml/min (>60); GFR (African American) 79 ML/MIN (>60); Globulin 2.7 g/dL (1.3-3.2); Glucose 154 mg/dl (74-100); HDL Cholesterol 47 mg/dl (40-60); Potassium 4.1 mmoL/L (3.5-5.1); Sodium 136 mmol/L (136-145); Total Protein,Serum 7.3 g/dl (6.3-8.2); Triglycerides 256 mg/dl (30-150); VLDL Cholesterol 51 mg/dL (0-40)
[2022-01-23 15:25] LABS: Direct LDL Cholesterol 80.04 mg/dL (100-129)
[2022-01-23 15:33] LABS: Free T4 (Free Thyroxine) 0.56 ng/dl (0.78-2.19)
[2022-01-23 15:44] LABS: Thyroid Stimulating Hormone 1.33 uIU/mL (0.465-4.68)
[2022-01-23 16:54] LABS: Amphetamine/Metha Screen,Urine Negative ng/ml (<1000)
[2022-01-23 16:55] LABS: Barbiturates Screen,Urine Negative ng/ml (<200)
[2022-01-23 16:56] LABS: Benzodiazepines Screen,Urine Negative ng/ml (<200)
[2022-01-23 16:57] LABS: Cannabinoid Screen,Urine Positive ng/ml (<50); Cocaine Screen,Urine Negative ng/ml (<300)
[2022-01-23 16:58] LABS: Methadone Screen,Urine Negative ng/ml (<300); Opiate Screen,Urine Negative ng/ml (<300)
[2022-01-23 16:59] LABS: Phencyclidine Screen,Urine Negative ng/ml (<25)
== END ==
PROVIDERS: PCP Emergency Medicine; Visit Provider Emergency Medicine
DX: E66.3 Overweight (principal); Z68.35 Body mass index [BMI] 35.0-35.9, adult; Z79.899 Other long term (current) drug therapy
CPT/HCPCS: 80053; 80061; 80305; 84439; 84443; 85025

== ENCOUNTER → 2022-01-28 16:03 | Outpatient (CLI) | payer MEDICAID, SELFPAY ==
[2022-01-28 16:09] LABS: Hemoglobin A1C 4.8 % (4.0-6.0)
[2022-01-28 17:38] LABS: Vitamin B12 249 pg/mL (239-931)
[2022-01-28 17:41] LABS: Folate 4.35 ng/mL
== END ==
PROVIDERS: PCP Emergency Medicine; Visit Provider Emergency Medicine
DX: R73.09 Other abnormal glucose (principal); D64.9 Anemia, unspecified
CPT/HCPCS: 82607; 82746; 83036

== ENCOUNTER → 2022-02-06 09:30 | Outpatient (POV) | payer MEDICAID, SELFPAY ==
--- NOTE | 2022-02-06 09:53 | EXP.PAIN.SOA ---
[facility] Pain Management SOAP Note Subjective:: Patient is a pleasant 46-year-old male who presents today for follow-up of lumbar epidural steroid injection L4-L5 on 01/22/2022. We are currently treating the patient for degenerative disc disease of lumbar spine multilevels with lumbar radiculopathy symptoms, lumbar facet arthropathy, lumbar spondylosis. Patient states that he had significant improvement following this injection. He states he had about 60% relief lasting for a little over 1 week. Today the patient rates his pain a 2 out of 10. He does state that he feels like his pain is starting to increase and go back up to his previous baseline. Patient describes this as a aching, throbbing sensation with numbness and tingling in his lower extremities that was worsened with increased activity. Patient denies any new trauma or injury. He is currently managed with gabapentin 600 mg 3 times a day and Percocet 5 mg 3 times a day by Dr. Neville's office. Patient denies any side effects from these medications. He states these medications are adequately helping manage his pain. He is also prescribed a compounding cream that he states does give some additional relief. His Aneudy is [id number]. It is been reviewed and appropriate. Review of Systems: General: No recent weight changes, no fever, no sleep disturbances Respiratory: No cough, no shortness of air, no recurring pulmonary infections Cardiovascular/peripheral vascular: No chest pain, no palpitations, no edema, no shortness of breath Gastrointestinal: No new onset incontinence, normal bowel movements reported Genitourinary: No new onset incontinence Musculoskeletal: Low back pain, bilateral leg pain Psychiatric: [Normal mood/affect] Neurological: [Denies weakness in extremities], [denies balance issues] Objective:: Physical Exam: General: Alert and oriented x3, no acute distress, pleasant and cooperative Lungs: Respirations even and unlabored, symmetrical chest expansion Eyes: PERRL Musculoskeletal: Flexion and extension of lumbar [spine] somewhat guarded secondary to pain, [antalgic gait noted] Neurological: Speech clear, no gross sensory deficit Assessment:: Degenerative disc disease lumbar spine multilevels with lumbar radiculopathy symptoms, lumbar spondylosis, lumbar facet arthropathy Plan:: Patient continues to have significant pain in his low back that radiates into his bilateral lower extremities. Patient did have limited range of motion of his lumbar spine during today's visit. Previously he did get significant improvement of at least 60% following his last lumbar epidural injection. I have discussed with the patient regarding repeating this injection. Risk and benefits were discussed with the patient. He would like to proceed forward with this injection. Patient is not currently on any blood thinners. We will schedule the patient for a LESI L4-L5 at today's visit. Patient has been instructed to contact the clinic with any concerns before the next appointment. Dr. Telles has reviewed this note and agrees with this plan of care. This note was dictated using voice recognition software and make contain errors or omissions. [facility] Medical History Depression Insomnia Neurogenic claudication due to lumbar spinal stenosis Neuropathy involving both lower extremities Nocturia Schizophrenia Tobacco dependence Surgical History No significant past surgical history Family History Other No significant family history Social History Smoking Status: Current every day smoker tobacco type: cigarettes packs per day: 1 alcohol intake: never counseling provided: none substance use type: marijuana current occupational status: disabled Travel in the last 8 weeks: None household m
[2022-02-06 09:59] VITALS: BP 126/83; PULSE 92; RESP 18; TEMP 36.6; O2SAT 97; BMI 34.7
== END ==
PROVIDERS: PCP Emergency Medicine; Visit Provider Nurse Practitioner Family
DX: M51.16 Intervertebral disc disorders with radiculopathy, lumbar region (principal); M47.26 Other spondylosis with radiculopathy, lumbar region
CPT/HCPCS: 99212; G0463

== ENCOUNTER 2022-02-19 10:03 | Day surgery (SDC) | payer MEDICAID, SELFPAY ==
[2022-02-19 10:16] VITALS: BP 134/73; PULSE 98; RESP 18; TEMP 36.5; O2SAT 100; BMI 34.7
[2022-02-19 10:37] VITALS: BP 145/73; PULSE 105; RESP 18; O2SAT 98
[2022-02-19 10:42] VITALS: BP 145/73; PULSE 105; RESP 18
[2022-02-19 10:43] VITALS: BP 124/85; PULSE 96; RESP 18; O2SAT 100
--- NOTE | 2022-02-19 11:28 | P.PCN_ITS ---
Procedure Date: 02/19/22 Time: 11:00 Anesthesiologist:: Josh Huerta CRNA Complications:: None Pre-procedure Diagnosis:: Degenerative disease lumbar spine multilevels. Lumbar radiculopathy. Post-procedure Diagnosis:: Same. Indications for Procedure:: Patient is a very pleasant 46-year-old male that comes our clinic today for lumbar epidural steroid injection of the L4-5 level. Patient has had 1 lumbar epidural steroid injection in the recent past. He reports 7 days of significant improvement. After which time his pain slowly returned. His pain is described as low back as well as bilateral hip and leg radicular symptoms. He rates his pain 7/10. Procedure Details:: Procedure: Lumbar epidural steroid injection under fluoroscopy Informed consent was obtained and the risks and benefits of the procedure were explained to the patient. The patient was taken to the procedure room and noninvasive monitors placed, including noninvasive blood pressure cuff and pulse oximeter. The back was viewed using C-arm Fluoroscopy and prepped using Chloraprep as a cleansing solution and the L4-L5 interspace was palpated. Skin and subcutaneous tissues were anesthetized using lidocaine 1.5% and a 25-gauge needle. After this, an 18-gauge Touhy epidural needle was placed into the L4-L5 interspace and advanced using fluoroscopic guidance and loss of resistance to air until the epidural space was encountered. After confirmation of needle pl acement in the epidural space, with dye, a solution containing normal saline, 3 mL and Depo-Medrol 80 mg were incrementally injected into the lumbar epidural space. The patient tolerated the procedure well with no complications. The patient was observed in the Pain Clinic and then discharged home neurologically intact. Plan and Disposition:: Patient was discharged without incident
== END 2022-02-19 10:43 | disposition home or self-care (01) ==
LOC: SC.PAINP 10:04
PROVIDERS: PCP Emergency Medicine; Visit Provider Nurse Anesthetist, Certified Registered
DX: M51.16 Intervertebral disc disorders with radiculopathy, lumbar region (principal); Z72.0 Tobacco use
CPT/HCPCS: 62323; J1040

== ENCOUNTER → 2022-03-19 10:03 | Outpatient (POV) | payer MEDICAID, SELFPAY ==
[2022-03-19 10:30] VITALS: BP 150/94; PULSE 99; RESP 18; O2SAT 100; BMI 34.4
--- NOTE | 2022-03-19 10:42 | EXP.PAIN.SOA ---
[facility] Pain Management SOAP Note Subjective:: Patient is a pleasant 46-year-old male who presents today for follow-up of lumbar epidural steroid injection at L4-L5 on 02/20/2022. We are currently treating the patient for degenerative disc disease of lumbar spine multilevels with lumbar radiculopathy symptoms, lumbar facet arthropathy, lumbar spondylosis. Today the patient states that he had approximately 80 to 90% relief following this injection lasting for 1 week. Today the patient rates his pain a 10 out of 10. Patient states the pain is all in his low back that radiates into his bilateral lower extremities. Patient states his pain is often affected by the weather. He states he has arthritis throughout and describes it as a aching, throbbing sensation that is worse with increased activity. Patient denies any new trauma or injury. Patient denies any change in that location or type of pain he experiences. Patient is currently managed with gabapentin 600 mg 3 times a day and Percocet 5 mg 3 times a day by Dr. Neville's office. Patient denies any side effects from these medications. He states these medications do adequately help manage his pain symptoms. His Aneudy is [id number]. It has been reviewed and appropriate. Review of Systems: General: No recent weight changes, no fever, no sleep disturbances Respiratory: No cough, no shortness of air, no recurring pulmonary infections Cardiovascular/peripheral vascular: No chest pain, no palpitations, no edema, no shortness of breath Gastrointestinal: No new onset incontinence, normal bowel movements reported Genitourinary: No new onset incontinence Musculoskeletal: Low back pain, leg pain Psychiatric: [Normal mood/affect] Neurological: [Denies weakness in extremities], [denies balance issues] Objective:: Physical Exam: General: Alert and oriented x3, no acute distress, pleasant and cooperative Lungs: Respirations even and unlabored, symmetrical chest expansion Eyes: PERRL Musculoskeletal: Flexion and extension of lumbar [spine] somewhat guarded secondary to pain, [antalgic gait noted] Neurological: Speech clear, no gross sensory deficit Assessment:: Degenerative disc disease of lumbar spine multilevels with lumbar radiculopathy symptoms, lumbar facet arthropathy, lumbar spondylosis Plan:: Patient is experiencing significant pain in his low back that radiates into his bilateral lower extremities. Patient did have limited range of motion of his lumbar spine during today's visit. Patient previously had 80 to 90% relief from his last lumbar epidural steroid injection. I have discussed with the patient regarding repeating this lumbar epidural. Risk and benefits were discussed with the patient. He would like to proceed forward with this plan of care. He is not currently on any blood thinners. We will schedule the patient for a LESI L4-L5. Patient has been instructed to contact the clinic with any concerns before the next appointment. Dr. Telles has reviewed this note and agrees with this plan of care. This note was dictated using voice recognition software and make contain errors or omissions. [facility] Medical History Depression Insomnia Neurogenic claudication due to lumbar spinal stenosis Neuropathy involving both lower extremities Nocturia Schizophrenia Tobacco dependence Surgical History No significant past surgical history Family History Other No significant family history Social History Smoking Status: Current every day smoker tobacco type: cigarettes packs per day: 1 alcohol intake: never counseling provided: none substance use type: marijuana current occupational status: disabled Travel in the last 8 weeks: None household members: other housing: house number
== END ==
PROVIDERS: PCP Emergency Medicine; Visit Provider Nurse Practitioner Family
DX: M51.16 Intervertebral disc disorders with radiculopathy, lumbar region (principal); M47.26 Other spondylosis with radiculopathy, lumbar region; Z72.0 Tobacco use
CPT/HCPCS: 99212; G0463

== ENCOUNTER → 2022-03-22 15:12 | Outpatient (CLI) | payer MEDICAID, SELFPAY ==
[2022-03-22 15:51] LABS: Benzodiazepines Screen,Urine Negative ng/ml (<200)
[2022-03-22 15:52] LABS: Amphetamine/Metha Screen,Urine Negative ng/ml (<1000); Barbiturates Screen,Urine Negative ng/ml (<200)
[2022-03-22 15:53] LABS: Methadone Screen,Urine Negative ng/ml (<300)
[2022-03-22 15:54] LABS: Cannabinoid Screen,Urine Positive ng/ml (<50); Cocaine Screen,Urine Negative ng/ml (<300)
[2022-03-22 15:55] LABS: Opiate Screen,Urine Negative ng/ml (<300); Phencyclidine Screen,Urine Negative ng/ml (<25)
== END ==
PROVIDERS: PCP Emergency Medicine; Visit Provider Emergency Medicine
DX: Z79.899 Other long term (current) drug therapy (principal)
CPT/HCPCS: 80305

== ENCOUNTER 2022-04-02 08:34 | Day surgery (SDC) | payer MEDICAID, SELFPAY ==
[2022-04-02 08:47] VITALS: BP 133/76; PULSE 109; RESP 18; TEMP 37.4; O2SAT 96; BMI 35.9
[2022-04-02 09:19] VITALS: BP 155/90; PULSE 105; RESP 18; O2SAT 98
[2022-04-02 09:21] VITALS: BP 155/90; PULSE 105; RESP 19; O2SAT 98
--- NOTE | 2022-04-02 09:33 | P.PCN_ITS ---
Procedure Date: 04/02/22 Time: 09:30 Anesthesiologist:: Josh Huerta CRNA Complications:: None Pre-procedure Diagnosis:: Degenerative disc disease lumbar spine multilevels. Lumbar radiculopathy Post-procedure Diagnosis:: Same. Indications for Procedure:: Very pleasant 46-year-old male comes our clinic today for lumbar epidural steroid injection at L4-5 level. Patient describes his pain as constant, dull, aching lumbar spine. Also complains of bilateral hip and leg radicular symptoms . Patient rates his pain 8/10. Procedure Details:: Procedure: Lumbar epidural steroid injection under fluoroscopy Informed consent was obtained and the risks and benefits of the procedure were explained to the patient. The patient was taken to the procedure room and noninvasive monitors placed, including noninvasive blood pressure cuff and pulse oximeter. The back was viewed using C-arm Fluoroscopy and prepped using Chloraprep as a cleansing solution and the L4-L5 interspace was palpated. Skin and subcutaneous tissues were anesthetized using lidocaine 1.5% and a 25-gauge needle. After this, an 18-gauge Touhy epidural needle was placed into the L4-L5 interspace and advanced using fluoroscopic guidance and loss of resistance to air until the epidural space was encountered. After confirmation of needle placement in the epidural space, with dye, a solution containing normal saline, 3 mL and Depo-Medrol 80 mg were incrementally injected into the lumbar epidural space. The patient tolerated the procedure well with no complications. The patient was observed in the Pain Clinic and then discharged home neurologically intact. Plan and Disposition:: Patient was discharged without incident
[2022-04-02 09:37] VITALS: BP 139/84; PULSE 92; RESP 20
== END 2022-04-02 09:39 | disposition home or self-care (01) ==
PROVIDERS: PCP Emergency Medicine; Visit Provider Nurse Anesthetist, Certified Registered
DX: M51.16 Intervertebral disc disorders with radiculopathy, lumbar region (principal); Z72.0 Tobacco use
CPT/HCPCS: 62323; J1040

== ENCOUNTER → 2022-05-02 14:47 | Outpatient (POV) | payer MEDICAID, SELFPAY ==
[2022-05-02 14:56] VITALS: BP 137/69; PULSE 102; RESP 19; O2SAT 97; BMI 36.3
--- NOTE | 2022-05-02 15:03 | EXP.PAIN.SOA ---
[facility] Pain Management SOAP Note Subjective:: Patient is a pleasant 47-year-old male who presents today for follow-up of lumbar epidural steroid injection at L4-L5 on 04/02/2022. We are currently treating the patient for degenerative disc disease of lumbar spine multilevels with lumbar radiculopathy symptoms, lumbar facet arthropathy, lumbar spondylosis. Today the patient states that he had approximately 100% relief following this injection lasting 2 weeks. Today the patient does feel like he is back to his baseline on his right side only. He rates his pain a 10 out of 10. Patient denies any new trauma or injury. Patient denies any change in location or type of pain he experiences. Patient does describe this as an aching, throbbing sensation that is worse with increased activity. Patient is unable to perform activities of daily living due to the worsening pain symptoms. Patient is currently managed with gabapentin 600 mg 3 times a day and Percocet 5 mg 3 times a day by Dr. Neville's office. Patient denies any side effects from these medications. He states these medications do provide significant improvement of his pain symptoms. His Aneudy is [id number]. Its been reviewed and appropriate. Review of Systems: General: No recent weight changes, no fever, no sleep disturbances Respiratory: No cough, no shortness of air, no recurring pulmonary infections Cardiovascular/peripheral vascular: No chest pain, no palpitations, no edema, no shortness of breath Gastrointestinal: No new onset incontinence, normal bowel movements reported Genitourinary: No new onset incontinence Musculoskeletal: Low back pain, right side leg pain Psychiatric: [Normal mood/affect] Neurological: [Denies weakness in extremities], [denies balance issues] Objective:: Physical Exam: General: Alert and oriented x3, no acute distress, pleasant and cooperative Lungs: Respirations even and unlabored, symmetrical chest expansion Eyes: PERRL Musculoskeletal: Flexion and extension of lumbar [spine] somewhat guarded secondary to pain, [antalgic gait noted] Neurological: Speech clear, no gross sensory deficit Assessment:: Degenerative disc disease of lumbar spine multilevels with lumbar radiculopathy symptoms, lumbar facet arthropathy, lumbar spondylosis Plan:: Patient had significant improvement of his pain symptoms following his last lumbar epidural steroid injection along the right side however he continues to experience significant pain on his left extremity. Patient had limited range of motion of his lumbar spine during today's visit. I have discussed with the patient that he may benefit from diagnostic right transforaminal steroid epidural injection. Risk and benefits were discussed with the patient. He would like to proceed forward with this plan of care. He is not any blood thinners. We will schedule the patient for a right transforaminal epidural steroid injection at L4-L5 and L5-S1. Patient has been instructed to contact the clinic with any concerns before the next appointment. Dr. Telles has reviewed this note and agrees with this plan of care. This note was dictated using voice recognition software and make contain errors or omissions. [facility] Disclaimer: The information contained in this section may have been updated after the patient was seen, as this information can be updated by other users. Medical History Depression Insomnia Neurogenic claudication due to lumbar spinal stenosis Neuropathy involving both lower extremities Nocturia Schizophrenia Tobacco dependence Surgical History No significant past surgical history Family History Other No significant family history Social History Smoking Status: Current every day smoker tobacco type: cigarettes packs per day:
== END ==
PROVIDERS: PCP Emergency Medicine; Visit Provider Nurse Practitioner Family
DX: M51.16 Intervertebral disc disorders with radiculopathy, lumbar region (principal); M47.26 Other spondylosis with radiculopathy, lumbar region; F17.210 Nicotine dependence, cigarettes, uncomplicated; Z79.899 Other long term (current) drug therapy
CPT/HCPCS: 99212; G0463

== ENCOUNTER 2022-05-14 10:31 | Day surgery (SDC) | payer MEDICAID, SELFPAY ==
[2022-05-14 10:42] VITALS: BP 128/81; PULSE 111; RESP 18; TEMP 36.7; O2SAT 100; BMI 36.3
[2022-05-14 10:46] VITALS: BP 153/86; PULSE 109; RESP 18; O2SAT 98
[2022-05-14 10:47] VITALS: BP 153/86; PULSE 109; RESP 18; O2SAT 98
--- NOTE | 2022-05-14 10:49 | EXP.PAIN.PRO ---
Procedure Date: 05/14/22 Time: 10:40 Anesthesiologist:: Josh Huerta CRNA Complications:: None Pre-procedure Diagnosis:: Degenerative disc disease lumbar spine multilevels. Lumbar radiculopathy. Disc bulge multilevel lumbar spine. Post-procedure Diagnosis:: Same Indications for Procedure:: Patient is a pleasant 47-year-old male that comes our clinic today for a right L4-5 and L5-S1 transforaminal epidural steroid injection. Patient has had multiple lumbar epidural steroid injections with minimal relief in terms of his right leg radicular symptoms. Patient currently being managed with gabapentin 600 mg 1 p.o. 3 times daily and Percocet 5 mg 1 p.o. 3 times daily from his PCP. Procedure Details:: Details of the procedure were explained to the patient. The patient taken the procedure room and placed in the prone position on the fluoroscopy table. The area over the lumbar spine was cleansed using chlorhexidine as a cleansing solution. Using fluoroscopy guidance in the AP position a 22-gauge 3 and half inch spinal needle was used to access the upper one third of right the L4-5 foramina. The same was done at the L5-S1 foramen. After negative aspiration and needle confirmation using fluoroscopy and a lateral position 1 cc of 1% lidocaine and 20 mg of Depo-Medrol was injected at each level Plan and Disposition:: Patient tolerated procedure without difficulty. There are no complications
[2022-05-14 10:50] VITALS: BP 122/77; PULSE 105; RESP 18; O2SAT 100
== END 2022-05-14 10:50 | disposition home or self-care (01) ==
PROVIDERS: PCP Emergency Medicine; Visit Provider Nurse Anesthetist, Certified Registered
DX: M51.16 Intervertebral disc disorders with radiculopathy, lumbar region (principal); F17.210 Nicotine dependence, cigarettes, uncomplicated
CPT/HCPCS: 64483; 64494; J1030

== ENCOUNTER → 2022-06-07 09:36 | Outpatient (POV) | payer MEDICAID, SELFPAY ==
[2022-06-07 09:54] VITALS: BP 129/72; PULSE 99; RESP 18; O2SAT 97; BMI 35.5
--- NOTE | 2022-06-07 11:08 | A.OFFVIS_ITS ---
[facility] Pain Management SOAP Note Subjective:: This patient is a pleasant 47-year-old male comes our clinic today for for follow-up visit after receiving a right L4-5 and L5-S1 transforaminal epidural steroid injection. Patient states he experienced 2 weeks of 80+ percent improvement terms of his right lower back pain as well as right hip and leg radicular symptoms. Patient still doing somewhat better from his baseline pain. However, he is complaining of right low back pain that he describes as constant, dull, aching. His right leg radicular symptoms is still improving. However, this pain is 8/10 and he describes it as constant, dull, sharp and stabbing. He has difficulty transitioning from sitting to standing. He has extreme point tenderness over the right sacroiliac joint. He has positive Yordan's test on the right. Positive Gaenslen's test on the right. Positive right sacroiliac joint compression test. Patient continues taking oxycodone 5 mg 1 p.o. twice daily. Gabapentin 600 mg 1 p.o. 3 times daily. Seroquel 4 sleep. These medicines come from his PCP. His Aneudy #[id number] has been reviewed and appropriate. Objective:: Patient is awake alert [place] x3. In no acute distress. Flexion-extension lumbar spine somewhat guarded secondary to pain. Deep tendon reflexes upper lower extremities normal. Motor strength upper lower extremities normal. There is no gross sensory deficit. Gait is normal. Assessment:: Degenerative disc disease lumbar spine multilevels. Lumbar radiculopathy. Right sacroiliitis. Plan:: Discussed in detail with the patient regarding treatment options. I will schedule the patient for right sacroiliac joint injection of cortisone. He wishes to proceed. Risk and benefits were discussed with the patient. Questions were answered. [facility] Disclaimer: The information contained in this section may have been updated after the p atient was seen, as this information can be updated by other users. Medical History Depression Insomnia Neurogenic claudication due to lumbar spinal stenosis Neuropathy involving both lower extremities Nocturia Schizophrenia Tobacco dependence Surgical History No significant past surgical history Family History Other No significant family history Social History Smoking Status: Current every day smoker tobacco type: cigarettes packs per day: 1 alcohol intake: never counseling provided: none substance use type: marijuana current occupational status: disabled Travel in the last 8 weeks: None household members: other housing: house number of children: 0 current occupational exposures/hazards: No caffeine: Yes
== END ==
PROVIDERS: PCP Emergency Medicine; Visit Provider Nurse Practitioner Family
DX: M51.16 Intervertebral disc disorders with radiculopathy, lumbar region (principal); M46.1 Sacroiliitis, not elsewhere classified
CPT/HCPCS: 99212; G0463

== ENCOUNTER 2022-06-18 07:42 | Day surgery (SDC) | payer MEDICAID, SELFPAY ==
[2022-06-18 08:18] VITALS: BP 145/72; PULSE 102; RESP 18; TEMP 36.8; O2SAT 100; BMI 35.5
[2022-06-18 08:22] VITALS: BP 148/83; PULSE 98; RESP 18; O2SAT 97
[2022-06-18 08:24] VITALS: BP 148/83; PULSE 98; RESP 18; O2SAT 98
--- NOTE | 2022-06-18 08:29 | EXP.PAIN.PRO ---
Procedure Date: 06/18/22 Time: 08:05 Anesthesiologist:: Josh Huerta CRNA Complications:: None Pre-procedure Diagnosis:: Right sacroiliitis Post-procedure Diagnosis:: Same Indications for Procedure:: Patient is a pleasant 47-year-old comes for right sacroiliac joint injection today. He has extreme point tenderness over the right SI joint. He rates his pain 8/10. Procedure Details:: Procedure: Right sacroliliac joint injection under fluoroscopy Informed consent was obtained and the risk and benefits of the procedure were explained to the patient.~ The patient was taken to the procedure room and noninvasive monitors were placed including noninvasive blood pressure cuff and pulse oximeter.~ The patient was placed prone on the procedure table.~ The~ right hip was cleansed using Betadine as a cleansing solution.~ C-arm fluorosocpy was used to view the right SI joint.~ The skin and subcutaneous tissues were anesthetized using Lidocaine 1.5% and a 25-gauge needle.~ After this, a 22-gauge spinal needle was inserted under fluoroscopic guidance into the inferior aspect of the right SI joint.~ Omnipaque dye was injected and a good spread was seen throughout the joint.~ After this, approximately 5 mL of bupivacaine 0.25% and Depo-Medrol 40 mg was incrementally injected into the sacroiliac joint.~ The patient tolerated the procedure well with no complications.~ The patient was observed in the Pain Clinic, then discharged home neurologically intact.~ Plan and Disposition:: Patient was discharged from the clinic with out incident. Essentially, patient states he is pain-free.
[2022-06-18 08:30] VITALS: BP 128/77; PULSE 94; RESP 18; O2SAT 100
== END 2022-06-18 08:30 | disposition home or self-care (01) ==
PROVIDERS: PCP Emergency Medicine; Visit Provider Nurse Anesthetist, Certified Registered
DX: M46.1 Sacroiliitis, not elsewhere classified (principal); F17.210 Nicotine dependence, cigarettes, uncomplicated
CPT/HCPCS: 27096; G0260; J1040

== ENCOUNTER → 2022-07-04 13:37 | Outpatient (POV) | payer MEDICAID, SELFPAY ==
[2022-07-04 13:46] VITALS: BP 154/82; PULSE 103; RESP 18; O2SAT 97; BMI 35.5
--- NOTE | 2022-07-04 14:11 | EXP.PAIN.SOA ---
[facility] Pain Management SOAP Note Subjective:: Patient is a pleasant 47-year-old male who comes to our clinic today for follow-up of right SI injection on 06/18/2022. We are currently treating the patient for degenerative disc disease of lumbar spine with lumbar radiculopathy symptoms, sacroiliitis. Today he states he has had 100% relief following this injection however it only lasted 7 days. Patient does rate his pain a 10 out of 10 today. He denies any new trauma or injury. Patient denies any change location or type of pain that he experiences. Patient does state that he is back to his baseline and describes it as a constant dull, achy sensation that is worse with increased activity. He does state that it does radiate down into his right leg and tenderness along his right hip. Patient does have difficulty tolerating prolonged sitting, standing, walking due to the pain. He does state that often times at night he has trouble sleeping due to increased pain in his legs and frequently has to get up in the middle night and move around to get any relief. He does state that it interferes with his ability to perform activities of daily living such as light cooking and cleaning. He is currently managed with Percocet 5 mg 3 times a day and gabapentin 600 mg 3 times a day from his primary care doctor. Patient denies any side effects from this medication. His Aneudy is [id number]. Its been reviewed and appropriate. Review of Systems: General: No recent weight changes, no fever, no sleep disturbances Respiratory: No cough, no shortness of air, no recurring pulmonary infections Cardiovascular/peripheral vascular: No chest pain, no palpitations, no edema, no shortness of breath Gastrointestinal: No new onset incontinence, normal bowel movements reported Genitourinary: No new onset incontinence Musculoskeletal: Low back pain, right hip pain, right leg pain Psychiatric: [Normal mood/affect] Neurological: [Denies weakness in extremities], [denies balance issues] Objective:: Physical Exam: General: Alert and oriented x3, no acute distress, pleasant and cooperative Lungs: Respirations even and unlabored, symmetrical chest expansion Eyes: PERRL Musculoskeletal: Flexion and extension of lumbar [spine] somewhat guarded secondary to pain, [antalgic gait noted] extreme point tenderness noted at right SI and right greater trochanteric bursa with positive right Yordan's, Meghan's, Gaenslen's, compression and distraction exam Neurological: Speech clear, no gross sensory deficit Assessment:: Degenerative disc disease of lumbar spine with lumbar radiculopathy symptoms, sacroiliitis, greater trochanteric bursitis Plan:: Patient did have 100% relief following his SI injection however he is back to his baseline with worsening pain in his low back on the right side and radiating into his right hip and right leg stopping at the knee. Patient did have limited range of motion of his lumbar spine along with extreme point tenderness at his right SI and right greater trochanteric bursa. Patient did have a positive right Meghan's, Yordan's, Gaenslen's, compression and distraction exam. I have discussed with the patient that he may benefit from repeat SI injection as well as a right bursa injection. Risk and benefits were discussed with the patient and he would like to proceed forward with this plan of care. I have also counseled the patient that I will order him ropinirole 0.5 mg at bedtime and provide a 2-week supply of this medication for his possible restless leg syndrome. Patient will be scheduled for a right SI and right bursa injection. Patient has been instructed to contact the clinic with any concerns before the next appointment. Dr. Telles has reviewed this note and agrees with this plan of care. This note was dictated using voice recognition software and make contain errors or omissions. [facility] Disclaimer: The information contained in this section may have been updated after the pat
== END | disposition home or self-care (01) ==
PROVIDERS: PCP Emergency Medicine; Visit Provider Nurse Practitioner Family
DX: M51.16 Intervertebral disc disorders with radiculopathy, lumbar region (principal); M46.1 Sacroiliitis, not elsewhere classified; M70.60 Trochanteric bursitis, unspecified hip
CPT/HCPCS: 99212; G0463

== ENCOUNTER 2023-12-28 07:24 | Emergency (ER) | payer MEDICAID, SELFPAY ==
[2023-12-28 07:24] VITALS: BP 92/74; PULSE 120; RESP 20; TEMP 36.6; O2SAT 95; BMI 24.3
[2023-12-28 07:32] VITALS: BP 92/74; PULSE 115; O2SAT 100
--- NOTE | 2023-12-28 07:44 | XR_ITS ---
PROCEDURE INFORMATION: Exam: XR Left Knee Exam date and time: 12/28/2023 7:50 AM Age: 48 years old Clinical indication: Swelling or effusion of joint and other: Redness, swelling; Knee; Additional info: Infection, sq gas? TECHNIQUE: Imaging protocol: Radiologic exam of the left knee. Views: 3 views. COMPARISON: CR [id number] XR knee LT 3V 12/20/2017 11:25 AM FINDINGS: Bones/joints: Moderate suprapatellar joint effusion is seen. Soft tissues: Moderate soft tissue swelling is seen around the left knee joint. IMPRESSION: No acute findings. Moderate suprapatellar joint effusion. Moderate soft tissue swelling around the left knee joint.
--- NOTE | 2023-12-28 07:53 | HMH.EDGENADL ---
Discharge Plan Disposition Patient Disposition: Left Against Medical Advice Prescriptions Prescriptions: No Action cholecalciferol (vitamin D3) 25 mcg (1,000 unit) capsule 1,000 unit PO DAILY Qty: 90 0RF rosuvastatin 5 mg tablet 5 mg PO DAILY 60 Days Qty: 60 0RF clonazepam 0.5 mg tablet 0.5 mg PO BID Qty: 60 1RF mirtazapine [Remeron] 30 mg tablet 30 mg PO QHS Qty: 90 1RF ergocalciferol (vitamin D2) 1,250 mcg (50,000 unit) capsule 50,000 unit PO QWEEK Qty: 12 0RF oxycodone-acetaminophen 5-325 mg tablet 1 tab PO TID Qty: 90 0RF gabapentin 600 mg tablet 600 mg PO TID Qty: 90 1RF lidocaine [Lidoderm] 5 % adhesive patch,medicated See Rx Instructions .ROUTE .COMPLEX Qty: 30 0RF Rx Instructions: Apply 1 PATCH topically once daily. Leave on most painful area for up to 12 hrs pantoprazole 40 mg tablet,delayed release (DR/EC) See Rx Instructions .ROUTE .COMPLEX Qty: 60 3RF Dose Instruction: Take 1 Tablet by mouth once daily for GERD Rx Instructions: Take 1 Tablet by mouth once daily for GERD cyanocobalamin (vitamin B-12) [Vitamin B-12] 2,500 mcg tablet, sublingual See Rx Instructions .ROUTE .COMPLEX Qty: 60 3RF Dose Instruction: Take 2 tablets by mouth once daily for SUPPLIMENT Rx Instructions: Take 2 tablets by mouth once daily for SUPPLIMENT tizanidine 4 mg tablet See Rx Instructions .ROUTE .COMPLEX Qty: 90 3RF Dose Instruction: Take 1 Tablet by mouth every 8 hours as needed for muscles. Rx Instructions: Take 1 Tablet by mouth every 8 hours as needed for muscles. diclofenac sodium 1 % gel See Rx Instructions .ROUTE .COMPLEX Qty: 100 1RF Dose Instruction: Apply 2 g topically 4 times daily. Apply to single elbow, wrist, or hand (palm/fingers/back of hand). Rx Instructions: Apply 2 g topically 4 times daily. Apply to single elbow, wrist, or hand (palm/fingers/back of hand). tamsulosin 0.4 mg capsule See Rx Instructions .ROUTE .COMPLEX Qty: 60 2RF Dose Instruction: Take 1 Capsule by mouth at bedtime for urinary frequency. Rx Instructions: Take 1 Capsule by mouth at bedtime for urinary frequency. bupropion HCl 75 mg tablet 75 mg PO BID 90 Days Qty: 180 0RF escitalopram oxalate 20 mg tablet 20 mg PO DAILY 90 Days Qty: 90 0RF lisinopril-hydrochlorothiazide 20-25 mg tablet See Rx Instructions .ROUTE .COMPLEX Qty: 60 2RF Dose Instruction: Take 1 Tablet by mouth once daily. Rx Instructions: Take 1 Tablet by mouth once daily. ropinirole 0.5 mg tablet See Rx Instructions .ROUTE .COMPLEX Qty: 14 0RF Dose Instruction: Take 1 Tablet by mouth nightly at bedtime. Take 1 to 3 hours before bedtime Rx Instructions: Take 1 Tablet by mouth nightly at bedtime. Take 1 to 3 hours before bedtime quetiapine 300 mg tablet See Rx Instructions .ROUTE .COMPLEX Qty: 180 0RF Dose Instruction: Take 2 Tablets by mouth at bedtime. Rx Instructions: Take 2 Tablets by mouth at bedtime. Referrals Follow up/Referrals: Provider,Referral, MD [Referring] - See instructions Clinical Impressions Clinical Impression: Cellulitis of leg, left, Sepsis, Acute hyponatremia Print Language Print Language: Lebanese Discharge ED Provider: Michele Ramirez General Adult HPI General Chief complaint: Extremity Problem,Nontraumatic Stated complaint: spider bite left leg Time Seen by Provider: 12/28/23 07:38 Mode of Arrival: Wheelchair Source of Information: Patient Limitations: No Limitations Description of Symptoms (Recalled from ER Triage Doc. by RN): left leg redness,swelling,drainage,possible spider bite History of Present Illness HPI narrative: Patient is a 48-year-old male presenting today with left lower extremity redness warmth pain is been worsening over the last several days. Claims that he was bitten by a brown recluse spider. When
[2023-12-28 07:57] LABS: Basophils # 0.1 K/mm3 (0-0.2); Basophils % 0.3 % (0.1-2.0); Eosinophils # 0.1 K/mm3 (0.0-0.4); Eosinophils % 0.4 % (0.1-12.0); Hematocrit 41.2 % (42.0-52.0); Hemoglobin 13.2 g/dL (14.1-18.0); Lymphocytes # 1.4 K/mm3 (0.7-4.5); Lymphocytes % 7.3 % (10-50); Mean Corpuscular HGB Conc 32.1 g/dL (31.8-35.4); Mean Corpuscular Hemoglobin 30.8 pg (27.0-31.2); Mean Platelet Volume 7.3 fl (7.4-10.4); Monocytes # 1.7 K/mm3 (0.1-1.0); Neutrophils # 15.4 K/mm3 (1.8-7.8); Neutrophils % 82.8 % (37.0-80.0); Platelet Count 378 K/mm3 (142-424); Red Cell Distribution Width 14.3 % (11.5-17.5); White Blood Count 18.6 K/mm3 (4.8-10.8)
[2023-12-28 07:59] LABS: MANUAL DIFFERENTIAL MANUAL DIFFERENTIAL (MANUAL DIFF)
[2023-12-28 08:00] LABS: Creatine Kinase 106 U/L (55-170)
[2023-12-28 08:01] VITALS: BP 122/68; PULSE 108; O2SAT 99
[2023-12-28 08:04] LABS: Activated Partial Thrombo Time 38.9 seconds (22.8-30.6); INR 1.16 (0.9-1.1); Prothrombin Time 12.8 seconds (10.1-12.5)
[2023-12-28 08:06] LABS: Lactate Venous 2.1 mmol/L (0.4-2.0); VBG Base Excess -2.5 mmol/L (-2.4-2.3); VBG HCO3 22.8 mmol/L (23-30); VBG Oxygen Saturation 71.2 % (50-70); VBG PCO2 40.4 mmol/L (35-51); VBG PH 7.37 mmol/L (7.31-7.41)
[2023-12-28 08:16] LABS: Troponin I < 0.01 ng/ml (0.00-0.034)
[2023-12-28 08:19] LABS: Lymphocytes % 15 % (10-50); Monocytes % 5 % (2-9); Neutrophils % 80 % (42-76); Platelet Estimate Normal; RBC Morphology Normal; Total Cells Counted 100
[2023-12-28 08:30] VITALS: BP 121/65; PULSE 100; RESP 19; O2SAT 98
[2023-12-28 08:30] LABS: Sodium 127 mmol/L (136-145)
[2023-12-28 08:31] LABS: Alanine Aminotransferase 24 U/L (12-78); Albumin Level 3.4 g/dl (3.5-5.0); Albumin/Globulin Ratio 1.3 (1.1-1.8); Alkaline Phosphatase 80 U/L (38-126); Anion Gap 12.1 mEq/L (5-15); Aspartate Amino Transferase 24 U/L (17-59); Blood Urea Nitrogen 14 mg/dl (9-20); Calcium 8.9 mg/dl (8.4-10.2); Carbon Dioxide 24 mmol/L (22.0-30.0); Chloride 95 mmol/L (98-107); Creatinine Clearance Estimated 100 mL/min (50-200); Erythrocyte Sedimentation Rate 52 mm/hr (0-15); Estimated Glomerular Filt Rate 90 ml/min (>60); GFR (African American) 109 ML/MIN (>60); Globulin 2.7 g/dL (1.3-3.2); Glucose 94 mg/dl (74-100); Potassium 4.1 mmoL/L (3.5-5.1); Total Protein,Serum 6.1 g/dl (6.3-8.2)
[2023-12-28 08:50] LABS: C-Reactive Protein 321.1 mg/L (0-4)
[2023-12-28 09:00] VITALS: BP 114/74; PULSE 110; RESP 17; O2SAT 99
[2023-12-28 09:34] VITALS: BP 116/78; PULSE 105; RESP 20; TEMP 37.1; O2SAT 99
[2023-12-28 12:07] LABS: Reflex Lactic Add Lactic Reflex
== END 2023-12-28 10:32 | disposition left against medical advice (07) ==
PROVIDERS: Emergency Provider Student in an Organized Health Care Education/Training Program; PCP Internal Medicine
DX: A41.9 Sepsis, unspecified organism (principal); L03.116 Cellulitis of left lower limb; E87.1 Hypo-osmolality and hyponatremia; R00.0 Tachycardia, unspecified; S80.862A Insect bite (nonvenomous), left lower leg, initial encounter; F17.210 Nicotine dependence, cigarettes, uncomplicated; W57.XXXA Bitten or stung by nonvenomous insect and other nonvenomous arthropods, initial encounter; Y92.9 Unspecified place or not applicable
CPT/HCPCS: 73562; 80053; 82550; 82803; 84484; 85007; 85025; 85027; 85610; 85651; 85730; 86140; 87040; 96361; 96365; 96366; 99291; J7120